=== PATIENT | female | born 1970 | race Two or more races ===

== ENCOUNTER 2020-07-24 14:41 | Outpatient (REF) | payer MEDICAID, SELFPAY | END 2020-07-24 14:42 | disposition home or self-care (01) | LOC: HO.LAB 14:41 | PROVIDERS: PCP Internal Medicine Geriatric Medicine; Visit Provider Internal Medicine | DX: Z20.828 Contact with and (suspected) exposure to other viral communicable diseases (principal) | CPT/HCPCS: 87635 ==

== ENCOUNTER 2021-03-01 07:37 | Outpatient (REF) | payer MEDICAID, SELFPAY ==
--- NOTE | 2021-03-01 | PFT_ITS ---
INDICATION: Dyspnea. SPIROMETRY: The FEV1 to FVC 85% with an FEV1 of 2.48 L, which is 88% predicted, and an FVC of 2.91 L, which is 84% predicted. No significant response to bronchodilators noted. Maximum voluntary ventilation 98% predicted. LUNG VOLUMES: Total lung capacity 84% predicted with an expiratory reserve volume of 28% predicted. DIFFUSION CAPACITY: DLCO 90% predicted. COMPARISONS: None. INTERPRETATION: No obstructive nor restrictive ventilatory defects identified. No significant response to bronchodilators noted. Normal maximum voluntary ventilation. Lung volumes with low normal total lung capacity, but also significantly decreased expiratory reserve volume secondary to an elevated BMI. Diffusion capacity is within normal limits. If asthma is in the differential, methacholine challenge may be helpful in assessing for hyper-reactive airways, otherwise clinical correlation warranted. MD SANDRO Verma/MODL / [id number]
--- NOTE | ~2021-03-01 | XR_ITS ---
EXAMINATION: XR CHEST 2 VIEWS CLINICAL INFORMATION: Dyspnea. COMPARISON: Chest radiographs dated 11/02/2018. TECHNIQUE: Frontal and lateral views of the chest were obtained. FINDINGS: The heart, great vessels, pulmonary vasculature and mediastinum are normal. The lungs show no focal infiltrate, effusion or pneumothorax. There is no acute osseous abnormality. There is multi-level thoracolumbar spondylosis, with an appearance suggesting possible DISH (diffuse idiopathic skeletal hyperostosis). XR/XR chest 2V IMPRESSION: No active cardiopulmonary disease.
== END 2021-03-01 07:38 | disposition home or self-care (01) ==
LOC: HO.RESP 07:37
PROVIDERS: PCP Internal Medicine Geriatric Medicine; Visit Provider Internal Medicine Geriatric Medicine
DX: R06.00 Dyspnea, unspecified (principal)
CPT/HCPCS: 71046; 94060; 94727; 94729

== ENCOUNTER 2021-03-28 14:50 | Outpatient (REF) | payer MEDICAID, SELFPAY ==
--- NOTE | ~2021-03-28 | XR_ITS ---
EXAMINATION: XR LEFT KNEE XR AP BILATERAL KNEES CLINICAL INFORMATION: Left knee pain. COMPARISON: None. TECHNIQUE: Bilateral knees standing. Left knee 2 views. FINDINGS: AP Bilateral Knees: There is mild reduction in the medial compartment joint space both knees. No bony erosive changes. No loose bodies or soft tissue swelling. There is mild sclerosis of bone marrow medial distal right femur with slight cortical outpouching. Question old or remote fracture. Underlying lesion is hard to exclude. Left Knee: There is mild loss of patellofemoral compartment joint space with minimal lateral patellar spurring. No abnormal joint effusion. No loose bodies seen. There is no acute fracture. XR/XR knee LT 2V IMPRESSION: Mild loss of medial and patellofemoral compartment joint space left knee with lateral patellar spurring. Findings are suggestive of degenerative arthritis. No visible acute fracture, dislocation or soft tissue abnormality seen. Mild sclerosis distal femoral bone marrow with medial cortical outpouching, right knee. This could be secondary to old or remote fracture. Underlying primary bone lesion cannot be excluded. Recommend correlation with clinical history of remote trauma. If there is no trauma, further evaluation with a bone scan or MRI is recommended.
--- NOTE | ~2021-03-28 | XR_ITS ---
EXAMINATION: XR LEFT KNEE XR AP BILATERAL KNEES CLINICAL INFORMATION: Left knee pain. COMPARISON: None. TECHNIQUE: Bilateral knees standing. Left knee 2 views. FINDINGS: AP Bilateral Knees: There is mild reduction in the medial compartment joint space both knees. No bony erosive changes. No loose bodies or soft tissue swelling. There is mild sclerosis of bone marrow medial distal right femur with slight cortical outpouching. Question old or remote fracture. Underlying lesion is hard to exclude. Left Knee: There is mild loss of patellofemoral compartment joint space with minimal lateral patellar spurring. No abnormal joint effusion. No loose bodies seen. There is no acute fracture. XR/XR knee standing BI IMPRESSION: Mild loss of medial and patellofemoral compartment joint space left knee with lateral patellar spurring. Findings are suggestive of degenerative arthritis. No visible acute fracture, dislocation or soft tissue abnormality seen. Mild sclerosis distal femoral bone marrow with medial cortical outpouching, right knee. This could be secondary to old or remote fracture. Underlying primary bone lesion cannot be excluded. Recommend correlation with clinical history of remote trauma. If there is no trauma, further evaluation with a bone scan or MRI is recommended.
== END 2021-03-28 14:51 | disposition home or self-care (01) ==
LOC: HO.XRAY 14:50
PROVIDERS: PCP Internal Medicine Geriatric Medicine; Visit Provider Physician Assistant
DX: M17.12 Unilateral primary osteoarthritis, left knee (principal); M25.562 Pain in left knee; M25.561 Pain in right knee
CPT/HCPCS: 73560; 73565; 99202

== ENCOUNTER → 2021-04-18 11:55 | Outpatient (BNVA) | payer MEDICAID, SELFPAY | PROVIDERS: PCP Internal Medicine Geriatric Medicine; Visit Provider Orthopaedic Surgery | DX: M25.532 Pain in left wrist (principal) | CPT/HCPCS: 99202 ==

== ENCOUNTER 2021-11-23 14:12 | Outpatient (REF) | payer MEDICAID, SELFPAY ==
--- NOTE | ~2021-11-23 | MM_ITS ---
EXAMINATION: MM SCREENING DIGITAL BREAST TOMOSYNTHESIS, BILATERAL CLINICAL INFORMATION: Screening. Asymptomatic. The lifetime risk of breast cancer based on the Tyrer-Cuzick Model is 8%. COMPARISON: Mammography: 04/21/2018, 04/17/2017, 12/13/2010 TECHNIQUE: Digital breast tomosynthesis is performed in both the craniocaudal and mediolateral oblique views along with computer-aided detection (CAD). Synthesized 2D images are generated from the tomosynthesis. FINDINGS: There are scattered areas of fibroglandular density (ACR BI-RADS breast composition Category b). There are no significant masses, abnormal calcifications, or other abnormalities. Parenchymal pattern is similar to prior studies. There are no significant changes. MM/MM tomosynthesis screening BI IMPRESSION: No mammographic evidence of malignancy. ASSESSMENT: BI-RADS 1: Negative RECOMMENDATION: Routine annual mammography screening. This patient's information was entered into a reminder system with a target due date for their next mammogram.
== END 2021-11-23 14:13 | disposition home or self-care (01) ==
LOC: HO.MAMMO 14:12
PROVIDERS: PCP Internal Medicine Geriatric Medicine; Visit Provider Internal Medicine Geriatric Medicine
DX: Z12.31 Encounter for screening mammogram for malignant neoplasm of breast (principal)
CPT/HCPCS: 77063; 77067

== ENCOUNTER 2022-12-09 09:14 | Outpatient (REF) | payer MEDICAID, SELFPAY ==
--- NOTE | ~2022-12-09 | US_ITS ---
EXAMINATION: US ABDOMEN COMPLETE CLINICAL INFORMATION: Right upper quadrant pain.. COMPARISON: Ultrasound abdomen 07/19/2011. TECHNIQUE: Real-time imaging of the abdominal viscera. FINDINGS: PANCREAS: Normal. ABDOMINAL AORTA: The proximal, mid, and distal segments are normal in caliber. INFERIOR VENA CAVA: Visualized portions are normal. LIVER: The liver is enlarged measuring 20.0 cm.. The liver is normal in size. The liver contour is normal. Parenchymal echogenicity is diffusely increased. No focal hepatic lesion. There is no intrahepatic biliary duct dilatation seen. GALLBLADDER: There are echogenic gallstones without wall thickening. No sludge, polyps, wall thickening or pericholecystic fluid seen. COMMON BILE DUCT: Normal in caliber measuring 0.7 cm in diameter. RIGHT KIDNEY: Normal. No hydronephrosis. No renal calculi or focal parenchymal lesions. The kidney measures 11.0 cm in maximum dimension. LEFT KIDNEY: Normal. No hydronephrosis. No renal calculi or focal parenchymal lesions. The kidney measures 11.7 cm in maximum dimension. SPLEEN: Normal. The spleen measures 10.0 cm in maximum dimension. FREE FLUID: None. US/US abdomen complete IMPRESSION: 1. Cholelithiasis without wall thickening. 2. Diffuse echogenic liver without focal lesion. 3. Rest of the abdominal ultrasound is unremarkable.
== END 2022-12-09 09:15 | disposition home or self-care (01) ==
LOC: HO.US 09:14
PROVIDERS: Visit Provider Internal Medicine Geriatric Medicine
DX: R10.11 Right upper quadrant pain (principal)
CPT/HCPCS: 76700

== ENCOUNTER → 2022-12-23 11:21 | Outpatient (BNVA) | payer MEDICAID, SELFPAY | PROVIDERS: PCP Internal Medicine Geriatric Medicine; Referring Provider Internal Medicine Geriatric Medicine; Visit Provider Surgery | DX: K80.50 Calculus of bile duct without cholangitis or cholecystitis without obstruction (principal) | CPT/HCPCS: 99202 ==

== ENCOUNTER 2023-01-03 07:05 | Day surgery (SDC) | payer MEDICAID, SELFPAY ==
[2022-12-30 13:36] VITALS: BMI 43.4
--- NOTE | 2023-01-02 10:23 | HO.ANESPROP2 ---
Documented by User: Arin Erickson NP 01/02/23 10:24 HPI - Anesthesia Eval Consult details Narrative: 52yo F for Cholecystectomy Laparoscopic, possible open PMFSH Active Problems Active Problems: All Active Problems (Updated 12/30/22 @ 13:36 by Ansley Mcknight RN) Osteoarthritis of left knee (Acute) Left wrist pain (Acute) Biliary colic (Acute) Past Medical History Medical History (Updated 12/30/22 @ 13:26 by Ansley Mcknight RN) Fibromyalgia High blood pressure HTN (hypertension) On beta kelley at home Surgical History Surgical History (Updated 12/30/22 @ 13:36 by Ansley Mcknight RN) No pertinent past surgical history Social History Social History Alcohol intake: never Patient Tobacco Use Status: Never used Tobacco Are you DNR?: No Advance Directives: No Advance Directives Information Provided: Yes Nutrition Risks: No Nutritional Risk Current occupational status: employed 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 Meds Allergies Allergy/AdvReac Type Severity Reaction Status Date / Time No Known Allergies Allergy Verified 01/03/23 07:15 [No Known Allergies*] Active Medications: Current Medications Cefazolin Sodium/Dextrose (Ancef) 2 gm in 50 mls @ 100 mls/hr IV PREOP ONE Stop: 01/02/23 10:35 Home Medications Medication Instructions Recorded Confirmed Last Taken Type metoprolol succinate 25 mg 12.5 mg PO DAILY 03/28/21 12/30/22 Unknown History tablet,extended release 24 hr fluticasone propionate 220 1 puff inhalation BID 12/23/22 12/30/22 Unknown History mcg/actuation HFA aerosol inhaler (Flovent HFA) montelukast 10 mg tablet 10 mg PO QPM 12/23/22 12/30/22 Unknown History Exam Exam Date and Time: January 02, 2023 1023 Height,Weight and Vital Signs: Height 5 ft 4 in Weight 114.759 kg Assessment and Plan Assessment Anesthesia Assessment: Chart Reviewed Documented by User: Laron Gordon MD 01/03/23 07:48 [facility] Past Medical History Medical History (Updated 12/30/22 @ 13:26 by Ansley Mcknight, RN) Fibromyalgia High blood pressure HTN (hypertension) On beta kelley at home Family History Family history of problems with anesthesia: No Surgical History Surgical History (Updated 12/30/22 @ 13:36 by Ansley Mcknight, RN) No pertinent past surgical history History of Problems with Anesthesia: No Social History Social History Alcohol intake: never Patient Tobacco Use Status: Never used Tobacco Are you DNR?: No Advance Directives: No Advance Directives Information Provided: Yes Nutrition Risks: No Nutritional Risk Current occupational status: employed 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 Meds Allergies Allergy/AdvReac Type Severity Reaction Status Date / Time No Known Allergies Allergy Verified 01/03/23 07:15 [No Known Allergies*] Home Medications Medication Instructions Recorded Confirmed Last Taken Type metoprolol succinate 25 mg 12.5 mg PO DAILY 03/28/21 12/30/22 Unknown History tablet,extended release 24 hr fluticasone propionate 220 1 puff inhalation BID 12/23/22 12/30/22 Unknown History mcg/actuation HFA aerosol inhaler (Flovent HFA) montelukast 10 mg tablet 10 mg PO QPM 12/23/22 12/30/22 Unknown History Exam Airway Mallampati Class: II TM Dist: <=3cm Neck ROM: Limited Heart: rrr Lungs: cta Assessment and Plan Assessment Anesthesia Assessment: Anesthesia Plan Discussed Final Anesthetic Review Family History of Problems with Anesthesia: No History of Problems with Anesthesia: No NPO: Yes ASA Class: III Final Preanesthetic Review: No Changes in Pt Med Stat, Meds/Allgs Chart Reviewed, Consent Obtained/Reviewed and Anes Risks/Benef Reviewed Patient Risk: Intermediate Procedure Risk: Intermediate Anesthetic Plan Anesthetic Plan: GA Disposition: Standard PACU
[2023-01-03] VITALS (12 sets, daily range): BP systolic 140–168; BP diastolic 68–95; PULSE 62–95; RESP 16–20; TEMP 36.1–36.8; O2SAT 98–100
[2023-01-03] MEDS: Lactated Ringers 1,000 ML 100 ML IVCONT (07:37)
--- NOTE | 2023-01-03 08:00 | PC.NURSE ---
IV attempt by author. attempt and insertion by josee ramsey rn
--- NOTE | 2023-01-03 08:34 | MHC.SHP ---
Pre-Procedural Eval Section A Date of Service: 01/03/23 The patient is an INPATIENT: No Changes since office visit: No Cold of Flu in the past 2 weeks, No New Medical Problems, No Changes in Medication and No Patient answered all questions Section B Chief Complaint: Calculus of bile duct without cholangitis or anna Allergies: Allergies Allergy/AdvReac Type Severity Reaction Status Date / Time No Known Allergies Allergy Verified 01/03/23 07:15 [No Known Allergies*] Plan I have reviewed the history and physical and performed a pertinent physical examination on my patient. No changes have occurred unless specified. Time Spent With Patient Time: Total time managing care of this patient today ____ minutes.
--- NOTE | 2023-01-03 09:54 | W.PM.OPN ---
Operative Note Operative Note Date of Service: 01/03/23 Narrative: Preoperative diagnosis: [] biliary colic Postop diagnosis: [] biliary colic Procedure [] laparoscopic cholecystectomy Surgeon: [] Cr Mechanical Shovel Operator: [] luis alfredo Mart Type of Anesthesia: [] general Indication for surgery: [] symptomatic biliary colic Findings: [] very corpulent abdomen. Gallbladder filled with multiple gallstones. Omental adhesions to the gallbladder. Intrahepatic gallbladder. Patient was brought to the operating room, placed on the operating table in a supine position, and after an adequate level of general anesthesia was induced, the patient's abdomen which was quite corpulent was prepped and draped in usual sterile fashion. Using a supraumbilical curvilinear incision, Najera technique was used to into the abdominal cavity which wasinsufflated to 15 mm of CO2. Upper midline and right subcostal ports were placed under direct laparoscopic view, and the patient was placed in reverse Trendelenburg position, and tilted to the left. Gallbladder was grasped using laparoscopic graspers and retracted superiorly and laterally. Omental lesions were swept off the gallbladder where its hilum was approached. Cystic artery and cystic duct were each identified ,circumferentially skeletonized, and each traced directly to the gallbladder and the critical view obtained. Each was clipped proximally x2, distally x1, and transected. Intrahepatic gallbladder was then cauterized from the gallbladder fossa using electro Bovie. Specimen was placed in an Endo-Catch bag, and retrieved through the umbilical port. Abdominal cavity was copiously irrigated, and secured hemostasis. All ports were removed under direct laparoscopic view. Wounds were closed in the following manner; umbilical wound had its fascia reapproximated using interrupted 0 Vicryl sutures. Skin was closed using subcuticular 4-0 Vicryl sutures followed by Steri-Strips and sterile dressings. Wounds were infiltrated 0.5% Marcaine with epinephrine at completion. Sponge, needle, and instrument counts were reported to be correct. Patient tolerated the procedure well and emerged anesthesia stable condition. EBL minimal
== END 2023-01-03 13:11 | disposition home or self-care (01) ==
PROVIDERS: PCP Internal Medicine Geriatric Medicine; Visit Provider Surgery
PROC: 0FT44ZZ Resection of Gallbladder, Percutaneous Endoscopic Approach (ICD-10-PCS; CPT 47562; principal; 2023-01-03 09:10)
DX: K80.10 Calculus of gallbladder with chronic cholecystitis without obstruction (principal); K82.8 Other specified diseases of gallbladder; I10 Essential (primary) hypertension; M79.7 Fibromyalgia; Z79.899 Other long term (current) drug therapy
CPT/HCPCS: 47562; 88304; J0131; J0690; J1100; J1170; J2250; J2370; J2405; J3010

== ENCOUNTER → 2023-01-10 09:54 | Outpatient (BNVA) | payer MEDICAID, SELFPAY | PROVIDERS: PCP Internal Medicine Geriatric Medicine; Visit Provider Surgery ==

== ENCOUNTER 2023-06-04 09:32 | Outpatient (REF) | payer MEDICAID, SELFPAY ==
[2023-06-04 11:56] LABS: Estimated Average Glucose 140 mg/dL; Hemoglobin A1c % 6.5 % (<6.0)
[2023-06-04 12:19] LABS: Anion Gap 11 (12-20); Blood Urea Nitrogen 14 mg/dL (9-16); Calcium 10.2 mg/dL (8.4-10.2); Carbon Dioxide 28 mmol/L (22-29); Chloride 106 mmol/L (96-108); Estimated Glomerular Filt Rate > 60; Glucose Random 159 mg/dL (60-115); Potassium 4.5 mmol/L (3.3-5.1); Sodium 140 mmol/L (135-145)
[2023-06-04 12:25] LABS: TSH reflex Free T4 4.52 uIU/mL (0.32-4.0)
[2023-06-04 12:59] LABS: Free T4 (Free Thyroxine) 0.76 ng/dL (0.71-1.85)
== END 2023-06-04 09:33 | disposition home or self-care (01) ==
LOC: HO.HHCL 09:32
PROVIDERS: Visit Provider Internal Medicine Geriatric Medicine
DX: R63.5 Abnormal weight gain (principal); R73.03 Prediabetes; G56.01 Carpal tunnel syndrome, right upper limb
CPT/HCPCS: 36415; 80048; 83036; 84439; 84443

== ENCOUNTER 2023-09-15 13:59 | Outpatient (REF) | payer MEDICAID, SELFPAY ==
[2023-09-18 21:38] LABS: HPV mRNA E6/E7 rflx Not Detected (Not Detected)
[2023-09-18 23:05] LABS: C. trachomatis RNA TMA NOT DETECTED (NOT DETECTED); N. gonorrhoeae RNA TMA NOT DETECTED (NOT DETECTED)
[2023-09-30 08:39] LABS: Trichomonas (NAAT) NOT DETECTED
== END 2023-09-15 14:00 | disposition home or self-care (01) ==
LOC: HO.HHCLNP 13:59
PROVIDERS: Visit Provider Advanced Practice Midwife
DX: Z12.4 Encounter for screening for malignant neoplasm of cervix (principal); Z11.51 Encounter for screening for human papillomavirus (HPV); Z11.3 Encounter for screening for infections with a predominantly sexual mode of transmission; N95.0 Postmenopausal bleeding
CPT/HCPCS: 36415; 87491; 87591; 87624; 87661; 88142

== ENCOUNTER → 2023-10-22 12:15 | Outpatient (BNV) | payer MEDICAID, SELFPAY | PROVIDERS: PCP Internal Medicine Geriatric Medicine; Visit Provider Radiology Diagnostic Radiology | DX: Z12.31 Encounter for screening mammogram for malignant neoplasm of breast (principal) | CPT/HCPCS: 77063; 77067 ==

== ENCOUNTER 2023-10-22 12:36 | Outpatient (REF) | payer MEDICAID, SELFPAY | END 2023-10-22 12:37 | disposition home or self-care (01) | LOC: HO.MAMMO 12:36 | PROVIDERS: PCP Internal Medicine Geriatric Medicine; Visit Provider Advanced Practice Midwife | DX: Z12.31 Encounter for screening mammogram for malignant neoplasm of breast (principal) | CPT/HCPCS: 77063; 77067 ==

== ENCOUNTER 2024-01-21 09:01 | Outpatient (REF) | payer MEDICAID, SELFPAY ==
[2024-01-21 12:01] LABS: Cholesterol 198 mg/dL (<200); HDL Cholesterol 50 mg/dL (>40); LDL Cholesterol Calculated 123 mg/dL (<100); Triglycerides 127 mg/dL (<150)
[2024-01-21 12:25] LABS: Creatinine Urine 167.61 mg/dL; Microalbum/Creatinine Ratio Ur 16.7 ug/mg cr (<30)
== END 2024-01-21 09:02 | disposition home or self-care (01) ==
LOC: HO.HHCL 09:01
PROVIDERS: Visit Provider Internal Medicine Geriatric Medicine
DX: Z13.220 Encounter for screening for lipoid disorders (principal); E11.9 Type 2 diabetes mellitus without complications
CPT/HCPCS: 36415; 80061; 82043; 82570

== ENCOUNTER 2024-04-09 10:19 | Outpatient (REF) | payer MEDICAID, SELFPAY ==
--- NOTE | ~2024-04-09 | US_ITS ---
EXAMINATION: US EXTREMITY, NONVASCULAR CLINICAL INFORMATION: Posterior left knee pain, question left popliteal cyst. COMPARISON: None available. TECHNIQUE: Targeted ultrasound images were obtained by the taximeter repairer of the area of concern as indicated by the patient in the left popliteal fossa. Radiologist was not in attendance. Images were later provided for interpretation. FINDINGS: No discrete fluid collection or mass identified in the left popliteal fossa. Imaged segment of left popliteal vein appears patent. US/US extremity nonvascular IMPRESSION: No discrete fluid collection or mass identified in the left popliteal fossa.
== END 2024-04-09 10:20 | disposition home or self-care (01) ==
LOC: HO.US 10:19
PROVIDERS: PCP Internal Medicine Geriatric Medicine; Visit Provider Nurse Practitioner Family
DX: M25.562 Pain in left knee (principal)
CPT/HCPCS: 76882

== ENCOUNTER 2024-05-10 08:25 | Outpatient (REF) | payer MEDICAID, SELFPAY | END 2024-05-10 08:26 | disposition home or self-care (01) | LOC: HO.HOSX 08:25 | PROVIDERS: Visit Provider Physician Assistant | DX: Z13.89 Encounter for screening for other disorder (principal) ==

== ENCOUNTER 2024-06-03 09:12 | Outpatient (REF) | payer MEDICAID, SELFPAY ==
--- NOTE | ~2024-06-03 | XR_ITS ---
EXAMINATION: XR KNEE, RIGHT XR KNEE, LEFT CLINICAL INFORMATION: Pain in the left and right knees. COMPARISON: None available. TECHNIQUE: Standing AP view of both knees and lateral and sunrise views of the left knee. FINDINGS: LEFT KNEE: Mild patellofemoral compartment osteoarthritis is characterized by small marginal osteophytes. Medial and lateral compartment joint spaces appear relatively well preserved. No fracture or malalignment. No joint effusion. Soft tissues are unremarkable. RIGHT KNEE: The bones, joints, and soft tissues are normal on the single AP view. XR/XR knee LT 3V IMPRESSION: Mild patellofemoral compartment osteoarthritis in the left knee. Electronically signed by: Ganga Tubbs MD 06/09/2024 01:09 PM EDT RP
--- NOTE | ~2024-06-03 | XR_ITS ---
EXAMINATION: XR KNEE, RIGHT XR KNEE, LEFT CLINICAL INFORMATION: Pain in the left and right knees. COMPARISON: None available. TECHNIQUE: Standing AP view of both knees and lateral and sunrise views of the left knee. FINDINGS: LEFT KNEE: Mild patellofemoral compartment osteoarthritis is characterized by small marginal osteophytes. Medial and lateral compartment joint spaces appear relatively well preserved. No fracture or malalignment. No joint effusion. Soft tissues are unremarkable. RIGHT KNEE: The bones, joints, and soft tissues are normal on the single AP view. XR/XR knee RT 1V IMPRESSION: Mild patellofemoral compartment osteoarthritis in the left knee. Electronically signed by: Ganga Tubbs MD 06/09/2024 01:09 PM EDT RP
== END 2024-06-03 09:13 | disposition home or self-care (01) ==
LOC: HO.HOSX 09:12
PROVIDERS: PCP Internal Medicine Geriatric Medicine; Visit Provider Physician Assistant
DX: M25.561 Pain in right knee (principal); M17.12 Unilateral primary osteoarthritis, left knee
CPT/HCPCS: 73560; 73562; 99212

== ENCOUNTER 2024-06-03 09:51 | Outpatient (AMB) | payer MEDICAID, SELFPAY ==
--- NOTE | 2024-06-03 10:19 | MHC.OFFVIS ---
Vital Signs 06/03/24 10:20 Height 5 ft 4 in Weight 240 lb BMI 41.2 Intake Visit Reasons: New Pt - left knee pain Intake Note: Hugh 53 year old female who presents today for a new patient evaluation of left knee pain. Patient reports her pain has been present for about 3-4 years, no previous tx. Her pain is located at the anterior and posterior aspect of knee. Finds very little relief with taking Tylenol and Motrin. Baby Nurse Required: Yes Baby Nurse Name: ID#[id number] Allergies No Known Allergies [No Known Allergies*] Allergy (Verified 06/03/24 10:21) Medication List - Last Reconciled 06/03/24 by Shanice Moore PA-C acetaminophen-codeine 300-15 mg 1 tab PO Q4H PRN fluticasone propionate 220 mcg/actuation (Flovent HFA) 1 puff inhalation BID metoprolol succinate ER 12.5 mg PO DAILY montelukast 10 mg PO QPM pramipexole 0.25 mg PO DAILY HPI HPI New Pt - left knee pain: Details: 53-year-old female who presents to the office today for an evaluation of left knee pain for about 4 years. She states she has pain at the anterior aspect and posterior aspect of her knee that is aggravated with stair use. She also experiences weakness with getting up after bending her knee. She finds minimal relief with Tylenol and Motrin. She has tried physical therapy a few years ago with no relief. 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 Tenderness along the medial joint line and lateral retropatellar tenderness present. Full ROM with crepitus. Negative Davidson?s. No ligamentous laxity. NVI. ? Results Reviewed Results Reviewed: X-rays of left knee the obtained in the office today show medial joint space narrowing with patellofemoral arthritis. Assessment & Plan Assessment & Plan (1) Osteoarthritis of left knee: Code(s): M17.12 - Unilateral primary osteoarthritis, left knee Category: Medical Plan We discussed options today which include physical therapy, anti-inflammatories and injections. She will hold off on injection today. I did put in an order for physical therapy and sent a prescription of Celebrex to her pharmacy which she will try for the next several weeks. If symptoms persist or worsen, patient will contact the office, otherwise follow-up as needed. for left knee cortisone injection. Orders: Orders XR knee RT 1V Today M25.561 - Pain in right knee PT Evaluation and Treatment Today M17.12 - Unilateral primary osteoarthritis, left knee Medications: New celecoxib (Celebrex) 200 mg PO BID 60 caps 3RF 30 days Patient Instructions: Scribed for Shanice Moore PA-C, by Jd Mosquera director medical economics, on 06/03/2024 at 10:15 AM EST.? I, Shanice Moore PA-C, have personally reviewed and agree with the information entered by the scribe. Coding Level of Care Code Est Pt Level 3 (62053) Complex EM visit Add On G2211 Diagnoses Osteoarthritis of left knee M17.12
[2024-06-03 10:20] VITALS: BMI 41.2
== END 2024-06-03 10:57 | disposition home or self-care (01) ==
PROVIDERS: PCP Internal Medicine Geriatric Medicine; Visit Provider Physician Assistant
DX: M17.12 Unilateral primary osteoarthritis, left knee (principal)
CPT/HCPCS: 99214

== ENCOUNTER 2024-08-11 09:05 | Outpatient (REF) | payer MEDICAID, SELFPAY ==
[2024-08-11 12:10] LABS: Alanine Aminotransferase 25 U/L (0-31); Albumin Level 3.8 g/dL (3.5-5.0); Alkaline Phosphatase 74 U/L (39-117); Anion Gap 12 (12-20); Aspartate Amino Transferase 21 U/L (5-31); Bilirubin Total 0.3 mg/dL (0.0-1.0); Blood Urea Nitrogen 13 mg/dL (9-16); Calcium 9.9 mg/dL (8.4-10.2); Carbon Dioxide 25 mmol/L (22-29); Chloride 107 mmol/L (96-108); Cholesterol 191 mg/dL (<200); Estimated Glomerular Filt Rate > 60; Glucose Random 127 mg/dL (60-115); HDL Cholesterol 45 mg/dL (>40); LDL Cholesterol Calculated 121 mg/dL (<100); Potassium 3.8 mmol/L (3.3-5.1); Sodium 140 mmol/L (135-145); Total Protein 7.1 g/dL (6.5-8.0); Triglycerides 125 mg/dL (<150)
[2024-08-11 12:30] LABS: Creatinine Urine 106.02 mg/dL
== END 2024-08-11 09:06 | disposition home or self-care (01) ==
LOC: HO.HHCL 09:05
PROVIDERS: Visit Provider Internal Medicine Geriatric Medicine
DX: E11.9 Type 2 diabetes mellitus without complications (principal)
CPT/HCPCS: 36415; 80053; 80061; 82043; 82570

== ENCOUNTER 2025-01-18 08:12 | Outpatient (REF) | payer OTHER, SELFPAY ==
--- NOTE | 2025-01-18 08:15 | EMG_ITS ---
Bilateral median and ulnar motor and sensory studies were performed. Bilateral radial sensory studies were performed and bilateral median and lateral antecubital brachial sensory studies were performed. Needle examination was performed. 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 MD KARLA Talbert/MAT / [id number]
--- OUTSIDE RECORDS SUMMARY | 2025-01-18 08:18 | XMS_ITS | Encounter Summary ---
Author Organization [employer] Address [address] [place] [address] [place] [address] Care Team Providers Care Sustainment Logistics Analyst Name Role Phone Name, Roni FERRARA Primary Care Provider [phone] Reason for Visit * Reason Onset Date Comments call back 12/10/2022 Encounter Details Date Type Department Care Team (Late st Contact Info) Description 12/10/2022 Telephone [facility] [address] [place] [address] [phone] Name, MD Roni [address] [place] [phone] call back Social History Tobacco Use Types Packs/Day Years Used Date Smoking Tobacco: Never Smokeless Tobacco: Never Alcohol Use Standard Drinks/Week Comments Never 0 (1 standard drink = 0.6 oz pur e alcohol) Comments Unknown Sex and Gender Information Value Date Recorded Sex Assigned at Female 08/05/2022 10:16 AM EDT Legal Sex Female 10:16 AM EDT Gender Identity Female 08/05/2022 10:16 AM EDT Sexual Orientation Straight 08/05/2022 10 :16 AM EDT documented as of this encounter Miscellaneous Notes * Telephone Encounter - Ahsan Stafford - 12/10/2022 4:23 PM EST Tc from pt returning call. Pt requesting a call back. documented in this encounter Plan of Treatment Upcoming Encounters Date Type Department Care Team (Late Contact Info) Description 02/07/2025 3:45 PM EDT Office Visit [facility] [address] [place] [address] [phone] Name, MD Roni [address] [place] [address] documented as of this encounter Visit Diagnoses Not on filedocumented in this encounter Care Teams Sustainment Logistics Analyst Relationship Specialty Start Date End Date Name, MD Roni [address] [place] [address] PCP - General Family Medicine 04/11/17 documented as of this encounter
--- OUTSIDE RECORDS SUMMARY | 2025-01-18 08:18 | XMS_ITS | Encounter Summary ---
Author Organization [employer] Address [address] [place] [address] [address] [place] [address] Care Team Providers Care Booking Officer Name Role Phone NameRoni MD Primary Care Provider [phone] Encounter Details Date Type Department Care Team (Late st Contact Info) Description 10/08/2022 Orders Only [facility] [address] [place] [address] Blanquita Tolliver LPN Social History Tobacco Use Types Packs/Day Years Used Date Smoking Tobacco: Never Assessed Comments Unknown Sex and Gender Information Value Date Recorded Sex Assigned at Female 08/05/2022 10:16 AM EDT Legal Sex Female 10:16 AM EDT Gender Identity Female 08/05/2022 10:16 AM EDT Sexual Orientation Straight 08/05/2022 10 :16 AM EDT documented as of this encounter Plan of Treatment Upcoming Encounters Date Type Department Care Team (Late st Contact Info) Description 02/07/2025 3:45 PM EDT Office Visit [facility] [address] [place] [phone] NameRoni MD [address] [place] [address] documented as of this encounter Visit Diagnoses Not on filedocumented in this encounter Care Teams Booking Officer Relationship Specialty Start Date End Date Roni Chicas MD [address] [place] [address] PCP - General Family Medicine 04/11/17 documented as of this encounter
--- OUTSIDE RECORDS SUMMARY | 2025-01-18 08:18 | XMS_ITS | Encounter Summary ---
Author Organization [employer] Address [address] [facility] 7 [place] [address] Care Team Providers Care Configuration Management Consultant Name Role Phone Name, Roni FERRARA Primary Care Provider [phone] Reason for Visit * Reason Onset Date Comments Med Refill 08/25/2023 Encounter Details Date Type Department Care Team ([facility] st Contact Info) Description 08/25/2023 Telephone [facility] MEDICINE [address] [place], [place] [phone] Name, MD Roni [address] [place] [address] Med Refill Social History Tobacco Use Types Packs/Day Years Used Date Smoking Tobacco: Never Smokeless Tobacco: Never Alcohol Use Standard Drinks/Week Comments Never 0 (1 standard drink = 0.6 oz pur e alcohol) Depression Answer Date Recorded Patient Health Questionnaire-9 Score 0 03/06/2023 Housing Stability Answer Date Recorded What is your housing situation today? I have maxx katz 07/22/[address] you li ve. Do you have problems with any of the following? None of the above 07/22/2023 Food Insecurity Answer Date Recorded Within the past 12 months, y ou worried that your food would run out before you got money to buy more: Never True 07/22/2023 Within the past 12 months,th e food you bought just didn't last and you didn't have enough money to get more: Never True Transportation Answer Date Recorded In the past 12 months, has l ack of transportation kept you from medical appts, meetings, work or from getting things needed for daily living? No 07/22/2023 Utilities Answer Date Recorded In the past 12 months, has t he electric, gas, oil or water company threatened to shut off services in your home? No 07/22/2023 Depression Answer Date Recorded Patient Health Questionnaire-2 Score 0 03/06/2023 Comments Unknown Sex and Gender Information Value Date Recorded Sex Assigned at Female 08/05/2022 10:16 AM EDT Legal Sex Female 10:16 AM EDT Gender Identity Female 08/05/2022 10:16 AM EDT Sexual Orientation Straight 08/05/2022 10 :16 AM EDT documented as of this encounter Miscellaneous Notes * Telephone Encounter - Blanquita Tolliver LPN - 08/25/2023 10:35 AM EST Medication was sent to [facility] Pharm[facility] on 06/20/23 #30 with 2 refills. * Telephone Encounter - Nathaniel Rodriguez - 08/25/2023 10:26 AM EST Tc from patient requesting a medication refill for pramipexole (Mirapex) 0.25 MG tablet. documented in this encounter Plan of Treatment Upcoming Encounters Date Type Department Care Team (Late st Contact Info) Description 02/07/2025 3:45 PM EDT Office Visit [facility] MEDICINE [address] [place] [phone] Name, MD Roni [address] [place] [phone] documented as of this encounter Visit Diagnoses Not on filedocumented in this encounter Additional Health Concerns Assessment Noted Time PHQ-9 Depression Total Score: 0 03/06/20 10:34 AM EDT documented as of this encounter Care Teams Configuration Management Consultant Relationship Specialty Start Date End Date Name, MD Roni [address] [place] [phone] PCP - General Family Medicine 04/11/17 documented as of this encounter
--- OUTSIDE RECORDS SUMMARY | 2025-01-18 08:18 | XMS_ITS | Encounter Summary ---
Author Organization [employer] Address [address] [place] [address] [place] [address] Care Team Providers Care Digital Sales Executive Name Role Phone Name, Roni FERRARA Primary Care Provider [phone] Reason for Visit * Reason Onset Date Comments Call back 12/10/2022 Encounter Details Date Type Department Care Team ([facility] st Contact Info) Description 12/10/2022 Telephone [facility] MEDICINE [address] [place], [place] [phone] Name, MD Roni [address] [place] [address] Call back Social History Tobacco Use Types Packs/Day [...] encounter Miscellaneous Notes * Telephone Encounter - Tracy Arriola RN - 12/10/2022 3:44 PM EST TC X2 to pt regarding message below. Unable to LVM as call was picked and quickly disconnected. Pt has upcoming appt on Friday. Pt to f/u PRN. * Telephone Encounter - Cooper Saldaña - 12/10/2022 3:19 PM EST Tc from pt returning phone call regarding message let on 12/10/2022 Please contact pt at [phone] documented in this encounter Plan of Treatment Upcoming Encounters Date Type Department Care Team (Late st Contact Info) Description 02/07/2025 3:45 PM EDT Office Visit [facility] MEDICINE [address] [place] [address] Name, MD Roni [address] [place] [address] documented as of this encounter Visit Diagnoses Not on filedocumented in this encounter Care Teams Digital Sales Executive Relationship Specialty Start Date End Date Name, MD Roni [address] [place] [phone] PCP - General Family Medicine 04/11/17 documented as of this encounter
--- OUTSIDE RECORDS SUMMARY | 2025-01-18 08:18 | XMS_ITS | Encounter Summary ---
Author Organization [employer] Address [address] [facility] 7 [place] [address] Care Team Providers Care Drilling Inspector Name Role Phone Name, Roni FERRARA Primary Care Provider [phone] Reason for Visit * Reason Onset Date Comments Nurse Triage 03/31/2024 Encounter Details Date Type Department Care Team ([facility] st Contact Info) Description 03/31/2024 Telephone [facility] MEDICINE [address] [place], [place] [phone] Name, MD Roni [address] [place] [address] Nurse Triage Social History Tobacco Use Types Packs/Day Years [...] t he electric, gas, oil or water [employer] threatened to shut off services in your home? No 07/22/2023 Depression Answer Date Recorded Patient Health Questionnaire-2 Score 0 03/06/2023 Comments No Sex and Gender Information Value Date Recorded Sex Assigned at Female 08/05/2022 10:16 AM EDT Legal Sex Female 10:16 AM EDT Gender Identity Female 08/05/2022 10:16 AM EDT Sexual Orientation Straight 08/05/2022 10 :16 AM EDT documented as of this encounter Miscellaneous Notes * Telephone Encounter - Wanda Canela RN - 03/31/2024 9:35 AM EDT Triage call with [place] [id number] Pt reports left foot pain. Left leg feels, heavier than the right leg. Pt reports pain is mainly on the top of the foot. Pt has hx of plantar fasciitis but, pain has increased recently. Pt denies swelling, redness, warmth. Pt describes the pain as throbbing all the time. Pt is able to ambulate with discomfort and shoes are worn without problem. Pt agrees with disposition and home care reviewed. Apt with GIORGIO Gutierrez 04/05/24 @ 345pm. Insurance is verified as active prior to booking. Protocol Used: Foot Pain (Adult) Protocol-Based Disposition: See in Office or Video Visit within 2 Weeks Video visit not offered Positive Triage Question: * Foot pain is a chronic symptom (recurrent or ongoing AND lasting > 4 weeks) * All higher-acuity triage questions were negative Care Advice Discussed: * Reassurance and Education - Foot Pain * Reassurance and Education - Overuse * Foot Pain - Aggravating Factors * Pain Medicines * Pain Medicines - Extra Notes and Warnings * Reasons To Call Back - Swelling, redness, or fever occur - Severe pain not relieved by pain medicine - Pain lasts over 7 days - You become worse * Telephone Encounter - Thao Waterman - 03/31/2024 8:54 AM EDT Symptom: Leg Pain - Not From Injury Outcome: Schedule an urgent appointment (within 1 hour) or talk to a nurse or provider soon Reason: Severe pain now The caller accepted this outcome Maldivian speaker documented in this encounter Plan of Treatment Upcoming Encounters Date Type Department Care Team (Late st Contact Info) Description 02/07/2025 3:45 PM EDT Office Visit [facility] MEDICINE [address] [place] [address] Name, MD Roni [address] [place] [address] documented as of this encounter Visit Diagnoses Not on filedocumented in this encounter Additional Health Concerns Assessment Noted Time PHQ-9 Depression Total Score: 0 03/06/20 23 10:34 AM EDT documented as of this encounter Care Teams Drilling Inspector Relationship Specialty Start Date End Date Name, MD Roni [address] [place] [id number] PCP - General Family Medicine 04/11/17 documented as of this encounter
--- OUTSIDE RECORDS SUMMARY | 2025-01-18 08:18 | XMS_ITS | Encounter Summary ---
Author Organization [employer] Address [address] [facility] 7 [place] [address] Care Team Providers Care Assisted Living Manager Name Role Phone Name, Roni FERRARA Primary Care Provider [phone] Reason for Visit * Reason Onset Date Comments Results 04/20/2024 Encounter Details Date Type Department Care Team ([facility] st Contact Info) Description 04/20/2024 Telephone [facility] MEDICINE [address] [place], [place] [phone] Name, MD Roni [address] [place] [address] Results Social History Tobacco Use Types Packs/Day Years [...] encounter Miscellaneous Notes * Telephone Encounter - Camilo Ron RN - 04/20/2024 1:57 PM EDT T/C to [phone] through [place] id - [id number] to inform that Ultrasound result is not available ( Not read by [facility] yet ). No answer. LVM to call back on [phone]. * Telephone Encounter - Prudencio Glasgow - 04/20/2024 12:31 PM EDT TC from pt requesting call back regarding Results. Type of results: Ultrasound Date when done: 04/09 Facility: [facility] documented in this encounter Plan of Treatment Upcoming Encounters Date Type Department Care Team (Late st Contact Info) Description 02/07/2025 3:45 PM EDT Office Visit [facility] MEDICINE [address] [place] [address] Name, MD Roni [address] [place] [address] documented as of this encounter Visit Diagnoses Not on filedocumented in this encounter Additional Health Concerns Assessment Noted Time PHQ-9 Depression Total Score: 0 03/06/20 23 10:34 AM EDT documented as of this encounter Care Teams Assisted Living Manager Relationship Specialty Start Date End Date Name, MD Roni [address] [place] [address] PCP - General Family Medicine 04/11/17 documented as of this encounter
--- OUTSIDE RECORDS SUMMARY | 2025-01-18 08:18 | XMS_ITS | Encounter Summary ---
Author Organization [employer] Address [address] [facility] 7 [place] [address] Care Team Providers Care Binder Stripper Machine Name Role Phone Name, Roni FERRARA Primary Care Provider [phone] Reason for Visit * Reason Comments Med Refill Encounter Details Date Type Department Care Team ([facility] st Contact Info) Description 12/29/2023 Refill [facility] MEDICINE [address] [place], [place] [phone] Name, MD Roni [address] [place] [address] Migraine without status migrainosus, not intractable, unspecified migraine type Social History Tobacco Use Types Packs/Day Years [...] Description 02/07/2025 3:45 PM EDT Office Visit [facility] MEDICINE [address] [place] [address] Name, MD Roni [address] [place] [phone] documented as of this encounter Visit Diagnoses Diagnosis Migraine without status migrainosus, not intractable, unspecified migraine type documented in this encounter Additional Health Concerns Assessment Noted Time PHQ-9 Depression Total Score: 0 03/06/20 23 10:34 AM EDT documented as of this encounter Care Teams Binder Stripper Machine Relationship Specialty Start Date End Date Name, MD Roni [address] [place] [address] PCP - General Family Medicine 04/11/17 documented as of this encounter
--- OUTSIDE RECORDS SUMMARY | 2025-01-18 08:18 | XMS_ITS | Clinical Summary ---
Author Organization [facility] Address [address] [place] [address] [address] [place] [address] Care Team Providers Care Labor Relations Analyst Name Role Phone Name, Roni FERRARA Primary Care Provider [phone] Allergies No known active allergies Medications Flovent HFA 220 MCG/ACT inhalerIndicatio ns:Migraine without status migrainosus, not intractable, unspecified migraine type INHALE 1 PUFF BY MOUTH TWICE DAILY RINSE MOUTH AFTER USING. 12 g 5 10/08/19 23 Active omeprazole (PriLOSEC) [address] capsuleIndicatio ns:Migraine without status migrainosus, not intractable, unspecified migraine type TAKE 1 CAPSULE BY MOUTH EVERY DAY 90 capsule 1 10/08/19 23 Active fluticasone (Flonase) 50 MCG/ACT nasal spray USE 2 SPRAYS IN EACH NOSTRIL EVERY DAY 09/11/20 22 Active albuterol 108 (90 Base) MCG/ACT inhaler Inhale 2 puffs Every 4-6 hours as needed. 02/07/20 21 Active DULoxetine (Cymbalta) [address] capsule take 1 capsule by oral route every day for 1 week, then increase to 2 capsules daily 04/26/20 22 Active valACYclovir (Valtrex) 1 g tablet Take 2 tablets by mouth twice daily for 1 day. 02/07/20 21 Active Mometasone Furoate (Asmanex HFA) 200 MCG/ACT aerosol INHALE 1 PUFF BY MOUTH TWICE DAILY RINSE MOUTH AFTER USING 13 g 5 10/17/19 24 Active montelukast (Singulair) 10 MG tabletIndication s:Asthma, unspecified asthma severity, unspecified whether complicated, unspecified whether persistent TAKE 1 TABLET BY MOUTH EVERY EVENING 90 tablet 2 11/17/19 24 Active TRUEplus Lancets 33G misc 1 each Once per day. TEST BLOOD SUGAR ONCE DAY 100 each 3 08/31/20 24 Active SUMAtriptan (Imitrex) 50 MG tabletIndication s:Migraine without status migrainosus, not intractable, unspecified migraine type TAKE 1 TABLET ONCE WITH FLUIDS EARLY POSSIBLE AFTER THE ONSET OF A MIGRAINE ATTACK, MAY REPEAT AFTER 2 HOURS IF HEADACHE RETURNS. DO NOT EXCEED 4 TABS IN A DAY. 10 tablet 2 08/31/20 24 Active FREESTYLE LITE test strip TEST BLOOD SUGAR ONCE A DAY 100 each 3 08/31/20 24 025 Active metoprolol tartrate (Lopressor) 100 MG tabletIndication s:Migraine without status migrainosus, not intractable, unspecified migraine type TAKE 1 TABLET BY MOUTH TWICE DAILY WITH MEALS 180 tablet 1 09/07/20 24 Active celecoxib (CeleBREX) 200 MG capsule TAKE 1 CAPSULE BY MOUTH EVERY DAY 30 capsule 1 11/03/19 25 Active pramipexole (Mirapex) 0.25 MG tabletIndication s:Restless legs TAKE 1 TABLET BY MOUTH EVERY DAY 30 tablet 2 12/03/19 25 Active metFORMIN (Glucophage) 850 MG tabletIndication s:Type 2 diabetes mellitus without complication, without long-term current use of insulin (CMS/HCC) Take 1 tablet (850 mg) by mouth with breakfast. 30 tablet 2 12/21/19 25 026 Active Blood Pressure kitIndications:E ssential hypertension 1 Units Once per day. 1 kit 12/21/19 25 Active dulaglutide (Trulicity) 1.5 MG/0.5ML solution pen-injectorIndi cations:New onset type 2 diabetes mellitus (CMS/HCC) Inject 1.5 mg under the skin 1 (one) time per week. 4 each 11 06/18/20 24 025 Discontinued(Me d list cleanup (will not trigger notification to Pharmacy)) Active Problems Problem Noted Date Diagnosed Date Posterior left knee pain 04/13/2024 Assessment & Plan (04/13/2024 5:32 PM EDT): Ultrasound ordered for possible popliteal cyst, exam not consistent with DVT. Plantar fasciitis, bilateral 04/05/2024 Assessment & Plan (04/13/2024 5:31 PM EDT): Will refer to ortho due to impact on knees. Encouraged sneakers and supportive footwear in interim New onset type 2 diabetes mellitus 06/05/2023 Hx of cholecystectomy 03/06/2023 Vertigo 10/09/2022 Pain of plantar aspect of heel 10/09/2022 Morbid obesity 09/02/2018 Knee pain 06/03/2018 Herpes labialis 10/08/2017 Essential hypertension 08/01/2017 Migraine 08/01/2017 Fibromyalgia 05/07/2017 Heartburn 05/07/2017 Blind left eye 04/16/2017 Joint pain 04/16/2017 Restless legs 04/16/2017 Resolved Problems Problem Noted Date Diagnosed Date Resolved Date Prediabetes 10/09/2022 08/18/2023 Leukocytosis 08/01/2017 03/06/2023 Raised TSH level 08/01/2017 03/06/2023 Encounters Date Type Department Care Team Description 01/10/2025 [facility] [address] [place] [address] NameRoni MD 12/30/2024 [facility] Information Management [address] [place] [address] NameRoni MD 12/20/2024 2:30 PM EDT Office Visit [facility] [address] [place] [address] Cristin Grimm NP Essential hypertension (Primary Dx); New onset type 2 diabetes mellitus (CMS/[facility]); Type 2 diabetes mellitus without complication, without long-term current use of insulin (CMS/HCC) 12/20/2024 Travel 12/15/2024 Telephone [facility] [address] [place] [address] Nishi Meier MA chartprep 12/13/2024 Telephone [facility] [address] [place] [address] Nishi Meier MA rescheduled appointment 12/06/2024 10:30 AM EST Office Visit [facility] [address] [place], [place] [id number] Tarka, Shirley, OD Type 2 diabetes mellitus without ophthalmic manifestations (CMS/HCC) (Primary Dx); Presbyopia; Blindness of left eye with normal vision in contralateral eye 12/06/2024 Telephone [facility] [address] [place] [address] NameRoni MD Appointment Request 12/06/2024 Travel 12/02/2024 Refill [facility] [address] [place], [place] [phone] NameRoni MD Restless legs 11/03/2024 Refill [facility] [address], [place] [phone] NameRoni MD from Last 3 Months Immunizations Name Administration Dates Next Due Tdap 04/16/2017 Social History Tobacco Use Types Packs/Day Years Used Date Smoking Tobacco: Never Smokeless Tobacco: Never Tobacco Cessation:Counseling Given: Not Answered Alcohol Use Standard Drinks/Week Comments Never 0 (1 standard drink = 0.6 oz pur e alcohol) Depression Answer Date Recorded Patient Health Questionnaire-9 Score 18 12/20/2024 Patient Health Questionnaire-9 Score 18 12/20/2024 Last PHQ-9: Questionnaire Data Not on file 0 12/20/2024 Housing Stability Answer Date Recorded What is your housing situation today? I have maxx sterling 12/20/[address] you li ve. Do you have problems with any of the following? None of the above 12/20/2024 Food Insecurity Answer Date Recorded Within the past 12 months, y ou worried that your food would run out before you got money to buy more: Never True 12/20/2024 Within the past 12 months,th e food you bought just didn't last and you didn't have enough money to get more: Never True Transportation Answer Date Recorded In the past 12 months, has l ack of transportation kept you from medical appts, meetings, work or from getting things needed for daily living? No 12/20/2024 Utilities Answer Date Recorded In the past 12 months, has t he electric, gas, oil or water company threatened to shut off services in your home? No 12/20/2024 Depression Answer Date Recorded Patient Health Questionnaire-2 Score 4 12/20/2024 Internet Access Answer Date Recorded Internet Access Q1 Yes 12/20/2024 Internet Access Q2 Not on file 12/20/2024 Comments No Sex and Gender Information Value Date Recorded Sex Assigned at Female 08/05/2022 10:16 AM EDT Legal Sex Female 10:16 AM EDT Gender Identity Female 08/05/2022 10:16 AM EDT Sexual Orientation Straight 08/05/2022 10 :16 AM EDT Last Filed Vital Signs Vital Sign Reading Time Taken Comments Blood Pressure 146/87 12/20/2024 2:50 PM EDT Pulse 73 12/20/2024 2:50 PM EDT Temperature 36.6 ??C (97.8 ??F) 12/20/2024 2:50 PM ED T Respiratory Rate 18 12/20/2024 2:50 PM EDT Oxygen Saturation 96% 12/20/2024 2:50 PM EDT Inhaled Oxygen Concentration - - Weight 115 kg (253 lb 12.8 oz) 12/20/2024 2:50 P M EDT Height 162.6 cm (5' 4 ) 12/20/2024 2:50 PM EDT Body Mass Index 43.56 12/20/2024 2:50 PM EDT Plan of Treatment Upcoming Encounters Date Type Department Care Team (Late st Contact Info) Description 02/07/2025 3:45 PM EDT Office Visit [facility] [address] [place] [address] Name, MD Roni [address] [place] [address] Health Maintenance Due Date Last Done Comments CT Colonography 1970 Colonoscopy 1970 Colorectal Cancer Screening 1970 FIT DNA/Cologuard 1970 FIT 1970 FOBT 1970 HIV Screening 1970 Sigmoidoscopy 1970 Alcohol/Substance Use Screening 1982 Hepatitis C Screening 1988 Hepatitis B Vaccines (1 of 3 - 19+ 3-dose series) 1989 Pneumococcal Vaccine: 50+ Years (1 of 2 - PCV) 1989 Zoster Vaccines (1 of 2) 2020 COVID-19 Vaccine ( - season) 2024 02/09/2021, 01/12/2021 Influenza Vaccine (#1) 2024 Diabetes: Foot Exam 12/21/2024 12/22/2023, 12/22/2023, 12/22/2023, Additional history exists Depression Monitoring 06/22/2025 12/20/2024, 025 Diabetes: Hemoglobin A1C 06/22/2025 025, 06/18/2024, 12/22/2023, Additional history exists Diabetes: Urine Protein Screening 08/11/2025 08/11/2024, 01/21/2024 Lipid Panel 08/11/2025 08/11/2024, 01/04, 03/01/2021 Mammogram 10/22/2025 10/22/2023, 11/06, 09/06/2021, Additional history exists Depression Screening 12/20/2025 12/20/2024, 12/21/19 25 SDOH Screening 12/20/2025 12/20/2024 Tobacco Screening 12/20/2025 12/20/2024 Eye Exam 12/06/2026 12/06/2024, 03/0 12/2024, 12/06/2024, Additional history exists DTaP/Tdap/Td Vaccines (2 - Td or Tdap) 04/16/2027 04/16/2017 Cervical Cancer Screening 09/15/2028 HPV/Cotest 09/15/2028 09/15/2023, 09/12/2020 Pap Smear 09/15/2028 09/15/2023, 09/05, 09/12/2020 RSV Patients and Patients Aged 60 years or older (1 - 1-dose 75+ series) 2045 HIB Vaccines Aged Out No longer eligi ble based on patient's age to complete this topic HPV Vaccines Aged Out No longer eligi ble based on patient's age to complete this topic Hepatitis A Vaccines Aged Out No long er eligible based on patient's age to complete this topic IPV Vaccines Aged Out No longer eligi ble based on patient's age to complete this topic Meningococcal Vaccine Aged Out No anay ed eligible based on patient's age to complete this topic RSV under 20 months Aged Out No longe r eligible based on patient's age to complete this topic Rotavirus Vaccines Aged Out No longer eligible based on patient's age to complete this topic Procedures Procedure Name Priority Date/Time Associated Diagnosis Comments POCT GLYCATED HEMOGLOBIN, TOTAL Routine 12/20/2024 2:58 PM EDT New onset type 2 diabetes mellitus (CMS/HCC) POCT GLUCOSE Routine 12/20/2024 2:52 PM EDT New onset type 2 diabetes mellitus (CMS/HCC) ALBUMIN, RANDOM URINE W/CREATININE Routine 08/11/2024 9:10 AM EST LIPID PANEL, STANDARD Routine 08/11/2024 9:10 AM EST New onset type 2 diabetes mellitus (CMS/HCC) BI MAMMOGRAM SCREENING TOMOSYNTHESIS BILATERAL Routine 10/22/2023 12:54 PM EST Breast cancer screening by mammogram HPV MRNA E6/E7 REFLEX TO HPV 16, 18/45 Routine 09/15/2023 11:11 AM EST IMAGE-GUIDED PAP W/AGE BASED SCR,W/CT/NG/TRICH Routine 09/15/2023 11:11 AM EST Cervical cancer screening Postmenopausal bleeding Encntr screen for infections w sexl mode of transmiss from Last 3 Months or Most Recently Relevant to Health Maintenance Results * (ABNORMAL) POCT HGB A1C (12/20/2024 2:58 PM EDT) Hemoglobin A1C 6.7(A) 4.0 - 6.0 % QC Media Lot # [id number] Lot# Expiration Date [id number] Blood 12/20/2024 2:58 PM EDT us Cristin Grimm NP POINT OF CARE TEST ENTER/EDIT O RDERABLES Final Result * POCT Glucose (12/20/2024 2:52 PM EDT) Glucose Blood, POC 104 60 - 200 mg/dL QC Media Lot # [id number] Lot# Expiration Date [id number] Blood Capillary blood specimen / Unknown 12/20/2024 2:52 PM EDT Cristintata Abreulev GIORGIO POINT OF CARE TEST ENTER/EDIT O RDERABLES Final Result * Albumin, Random Urine W/Creatinine (08/11/2024 9:10 AM EST) Creatinine, Urine 106.02 mg/dL [facility] Microalbumin Urine 16.0 mg/L [facility] Microalbum Creatinine Ratio Ur 15.0 <30 ug/mg cr [facility] Comment:Albumin/Creatinine R atio Reference Ranges: Normal: < 30 ug/mg creatinine Microalbuminuria: 30 - 300 ug/mg creatinineClinical Albuminuria: > 300 ug/mg creatinine 08/11/2024 9:10 AM EST 08/11/2024 11:12 AM EST Roni Chicas MD LAB URINE ORDERABLES Final Resul t [facility] [address] [place] [phone] * (ABNORMAL) Lipid Panel, Standard (08/11/2024 9:10 AM EST) Triglycerides 125 <150 mg/dL [facility] Comment:Desirable Triglyceri de: less than 150 mg/dLBorderline High Triglyceride 150-199 mg/dLHigh Triglyceride: 200-499 mg/dLVery High Triglyceride: greater than or equal to 5OO mg/dL Cholesterol 191 <200 mg/dL [facility] Comment:Desirable Cholestero l: less than 200 mg/dLBorderline High Cholesterol: 200-239 mg/dLHigh Cholesterol: greater than 239 mg/dL LDL Cholesterol Calculated 121(H) <100 mg/dL [facility] Comment:Desirable LDL: less than 100 mg/dLNear Optimal/Above Optimal LDL: 110- 129 mg/dLBorderline High LDL: 130-159 mg/dLHigh LDL: 160-189 mg/dLVery High LDL: greater than or equal to 190 mg/dL HDL Cholesterol 45 >40 mg/dL [facility] Comment:Desirable HDL: great er than 40 mg/dL Note: This HDL assay may give artificially low results in patients with liver disease. Blood Venous blood specimen / Unknown 08/11/2024 9:10 AM EST 08/11/2024 11:25 AM EST us Roni Name LAB BLOOD ORDERABLES Final Resul t [facility] [address] [place] [address] [phone] * BI Mammogram Screening Tomosynthesis Bilateral (10/22/2023 12:54 PM EST) Anatomical Region Laterality Modality Breast Bilateral Mammography 10/22/2023 12:5 4 PM EST Narrative 11/08/2023 6:58 AM EST ? [facility] ? [address] ?[place] [address] ? Mammography Report ? Signed ? Patient: Gigi Devine,Sydnie ?MR#: [id number] ?? [id number] ? : 1970 ?Acct:[id number] ? Age/Sex: 52 / F ?ADM Date: 10/22/ ? Loc: HO.MAMMO ? Attending Dr: Herlinda Lind CNM ? Ordering Physician: HERLINDA LIND CNM ?Results: 1 ?? Negative ? Date of Service: 10/22/ ?Follow Up: 1 Year From Orig ?? inal Mammogram ? Procedure(s): MM tomosynthesis screening BI ?? Accession Number(s): [id number] ? cc: Aviva,Roni FERRARA; HERLINDA LIND CNM ? EXAMINATION: ?? MM SCREENING DIGITAL BREAST TOMOSYNTHESIS, BILATERAL ? CLINICAL INFORMATION: ? Screening. Asymptomatic. ? COMPARISON: ?? Mammography: This study is compared with prior exams dating back to ?? 2017. ? TECHNIQUE: ?? Digital breast tomosynthesis is performed in both the craniocaudal and ?? mediolateral oblique views along with computer-aided detection (CAD). ?? Synthesized 2D images are generated from the tomosynthesis. ? FINDINGS: ?? There are scattered areas of fibroglandular density (ACR BI-RADS breast ?? composition Category b). ? There are no significant masses, abnormal calcifications, or other ?? abnormalities. ? MM/MM tomosynthesis screening BI ?? IMPRESSION: ?? No mammographic evidence of malignancy. ? ASSESSMENT: ? BI-RADS BI-RADS 1 - Negative ? RECOMMENDATION: ?? Routine annual mammography screening. ? 1 year F/U ? This examination should not preclude the clinical evaluation of a ?? suspicious palpable abnormality. ? This patient's information was entered into a reminder system with a ?? target due date for their next mammogram. ? Dictated By: ?Laura Casiano MD ? Signed By: ?<Electronically signed by Laura Casiano MD in OV> ? 11/08/23 0654 ? DD/ 1254 ? TD/TT: ? Clin Tech: ? Procedure Note Rosanna, Image - 11/08/2023 [facility] [address] [place] [address] [place] [address] Mammography Report Signed Patient: Nona Clancy [facility]#: M [id number] : 1970Acct:[id number] Age/Sex: 52 / FADM Date: 10/22/23 Loc: HO.MAMMO Attending Dr: Herlinda Lind CNM Ordering Physician: HERLINDA LINDesults: 1 Negative Date of Service: 10/22/23Follow Up: 1 Year From Orig ina Mammogram Procedure(s): MM tomosynthesis screening BI Accession Number(s): [id number] cc: Name,Roni FERRARA; HERLINDA LIND CNM EXAMINATION: MM SCREENING DIGITAL BREAST TOMOSYNTHESIS, BILATERAL CLINICAL INFORMATION: Screening. Asymptomatic. COMPARISON: Mammography: This study is compared with prior exams dating back to 2017. TECHNIQUE: Digital breast tomosynthesis is performed in both the craniocaudal and mediolateral oblique views along with computer-aided detection (CAD). Synthesized 2D images are generated from the tomosynthesis. FINDINGS: There are scattered areas of fibroglandular density (ACR BI-RADS breast composition Category b). There are no significant masses, abnormal calcifications, or other abnormalities. MM/MM tomosynthesis screening BI IMPRESSION: No mammographic evidence of malignancy. ASSESSMENT: BI-RADS BI-RADS 1 - Negative RECOMMENDATION: Routine annual mammography screening. 1 year F/U This examination should not preclude the clinical evaluation of a suspicious palpable abnormality. This patient's information was entered into a reminder system with a target due date for their next mammogram. Dictated By: Laura Casiano MD Signed By: <Electronically signed by Laura Casiano MD in OV> 11/08/23 0654 DD/ 1254 TD/TT: Clin Tech: Herlinda Lind CNM IMG BI PROCEDURES Final R esult * Image-Guided Pap with Age-Based Screening??with CT/NG,??Trichomonas (09/15/2023 11:11 AM EST) Trichomonas (NAAT) NOT DETECTED [facility] Comment:TRICHOMONAS VAGINALI S, QL TMA, PAP VIAL: NOT DETECTEDThe analytical performance characteristics of thisassay have been determined by [employer]. Themodifications have not been cleared or approved bythe FDA. This assay has been validated pursuant to theIA regulations and is used for clinical purposes.For additional information, please refer tohttp://education.Icon[employer]/faq/Trichomonastma(This link is being provided for information/educational purposes only.)THIS TEST PERFORMED AT:[employer] [place] [phone] DIRECTOR: HUMAIRA HODGE MD CTNG Ref Lab NOT DETECTED NOT DETECTED [facility] NG Ref Lab NOT DETECTED NOT DETECTED [facility] Pap Vial 09/15/2023 11:1 1 AM EST 09/16/2023 11:59 AM EST Herlinda Lind [facility] CYTOLOGY ORDERABLES E dited Result - Final [facility] [address] [place] [phone] * HPV mRNA E6/E7 w/Reflex to HPV Genotypes 16, 18/45 (09/15/2023 11:11 AM EST) HPV nRNA E6/E7 Not Detected Not Detected [facility] Comment:Methodology: Transcr iption-Mediated AmplificationThis assay detects E6/E7 viral messenger RNA (mRNA) from 14high-risk HPV types (16,18,31,33,35,39,45,51,52,56,58,59,66,68).Cervical sources are required for HPV testing.If a vaginal source from a patient who has had atotal hysterectomy with removal of cervix wassubmitted, please contact the testing laboratoryfor alternative testing options.For additional information, please refer tohttp://education.Iconicfuture/faq/OOR925i1(This link if provided for information/educational purposes only.)THIS TEST WAS PERFORMED AT:[employer] [place] [phone] HODGE MD HPV mRNA E6/E7 TNP [facility] HPV 16 RNA TNP [facility] HPV 18/45 RNA [facility] 09/15/2023 11:1 1 AM EST 09/16/2023 8:30 AM EST Herlinda Pazleahdaneorion CN LAB CYTOLOGY ORDERABLES F inal Result [facility] [address] [place] [address] [phone] from Last 3 Months or Most Recently Relevant to Health Maintenance Insurance [facility] [place] [address] Care Teams Labor Relations Analyst Relationship Specialty Start Date End Date Name, MD Roni [address] [place] [address] PCP - General Family Medicine 04/11/17
== END 2025-01-18 08:13 | disposition home or self-care (01) ==
LOC: HO.NEURO 08:12
PROVIDERS: PCP Internal Medicine Geriatric Medicine; Visit Provider Internal Medicine Geriatric Medicine
DX: G56.13 Other lesions of median nerve, bilateral upper limbs (principal)
CPT/HCPCS: 95860; 95886; 95913

== ENCOUNTER 2025-04-29 12:42 | Outpatient (AMB) | payer OTHER, SELFPAY ==
--- OUTSIDE RECORDS SUMMARY | 2025-04-29 12:44 | XMS_ITS | Clinical Summary ---
Author Organization [employer] Address [address] [place] [address] 7 [place] [address] Care Team Providers Care Engraver Name Role Phone Name, Roni FERRARA Primary Care Provider [phone] Allergies No known active allergies Medications Flovent [...] DAY 100 each 3 08/31/20 24 Active FREESTYLE LITE test strip TEST BLOOD SUGAR ONCE A DAY 100 each 3 08/31/20 24 025 Active Blood Pressure kitIndications:E ssential hypertension 1 Units Once per day. 1 kit 12/21/19 25 Active SUMAtriptan (Imitrex) 50 MG tabletIndication s:Migraine without status migrainosus, not intractable, unspecified migraine type TAKE 1 TABLET BY MOUTH AT ONSET OF MIGRAINE. MAY REPEAT ONCE AFTER 2 HOURS IF NEEDED. NO MORE THAN 4 TABLETS PER 24 HOURS 10 tablet 2 02/08/20 25 Active celecoxib (CeleBREX) 200 MG capsule TAKE 1 CAPSULE BY MOUTH EVERY DAY 30 capsule 1 02/08/20 25 Active metFORMIN (Glucophage) 500 MG tabletIndication s:Type 2 Diabetes Mellitus Take 0.5 tablets (250 mg) by mouth with breakfast and with evening meal. 30 tablet 3 02/08/20 25 026 Active pramipexole (Mirapex) 0.25 MG tabletIndication s:Restless legs TAKE 1 TABLET BY MOUTH EVERY DAY 30 tablet 2 03/07/20 25 Active metoprolol tartrate (Lopressor) 100 MG tabletIndication s:Migraine without status migrainosus, not intractable, unspecified migraine type TAKE 1 TABLET BY MOUTH TWICE DAILY WITH MEALS 180 tablet 1 04/06/20 25 Active metoprolol tartrate (Lopressor) 100 MG tabletIndication s:Migraine without status migrainosus, not intractable, unspecified migraine type TAKE 1 TABLET BY MOUTH TWICE DAILY WITH MEALS 180 tablet 1 09/07/20 24 025 Discontinued Active Problems Problem Noted Date Diagnosed Date [...] 06/03/2018 Herpes labialis 10/08/2017 Essential hypertension 08/01/2017 Assessment & Plan (03/17/2025 10:31 AM EDT): -repeat BP w/n acceptable range -lifestyle and dietary changes are encouraged along with med compliance -BP kit ordered for home monitoring Migraine 08/01/2017 Fibromyalgia 05/07/2017 Heartburn 05/07/2017 Blind left eye 04/16/2017 Joint pain 04/16/2017 Restless legs 04/16/2017 Resolved Problems Problem Noted Date Diagnosed Date Resolved Date Prediabetes 10/09/2022 08/18/2023 Leukocytosis 08/01/2017 03/06/2023 Raised TSH level 08/01/2017 03/06/2023 Encounters Date Type Department Care Team Description 04/06/2025 Refill [facility] [address] [place] [address] Roni Chicas MD Migraine without status migrainosus, not intractable, unspecified migraine type 03/14/2025 Telephone [facility] [address] [place] [address] Roni Chicas MD Prior Authorization 03/06/2025 Refill [facility] [address] [place], [place] [phone] Roni Chicas MD Restless legs 02/07/2025 3:45 PM EDT Office Visit [facility] [address] [place] [address] Roni Chicas MD Type 2 diabetes mellitus treated without insulin ([facility]) (Primary Dx) 02/07/2025 Travel 02/05/2025 Refill [facility] [address] [place] [address] Roni Chicas MD 02/05/2025 Refill [facility] [address] [place], [place] [phone] Nona Iverson MD Migraine without status migrainosus, not intractable, unspecified migraine type 02/04/2025 Telephone [facility] [address] [place] [address] Kemal Viera MA chart prep from Last 3 Months Immunizations Immunization Administration Dates Next Due Tdap 04/16/2017 Social [...] housing situation today? I have maxx katz 12/20/[address] you li [...] Sign Reading Time Taken Comments Blood Pressure 155/90 02/07/2025 4:01 PM EDT Pulse 78 02/07/2025 4:01 PM EDT Temperature 37.1 C (98.7 F) 02/07/2025 4:01 PM EDT Respiratory Rate 16 02/07/2025 4:01 PM EDT Oxygen Saturation 98% 02/07/2025 4:01 PM EDT Inhaled Oxygen Concentration - - Weight 115 kg (254 lb) 02/07/2025 4:01 PM EDT Height 162.6 cm (5' 4 ) 02/07/2025 4:01 PM EDT Body Mass Index 43.6 02/07/2025 4:01 PM EDT Plan of Treatment Upcoming Encounters Date Type Department Care Team (Late st Contact Info) Description 05/18/2025 3:30 PM EDT Office Visit [facility] [address] [place], [place] [phone] Name, MD Roni [address] [place] [address] Health Maintenance Due Date Last Done Comments CT Colonography 1970 Colonoscopy 1970 Colorectal Cancer Screening 1970 FIT DNA/Cologuard 1970 FIT 1970 FOBT 1970 HIV Screening 1970 Sigmoidoscopy 1970 Hepatitis C Screening 1988 Hepatitis B Vaccines (1 of 3 - 19+ 3-dose series) 1989 Pneumococcal Vaccine: 50+ Years (1 of 2 - PCV) 1989 Zoster Vaccines (1 of 2) 2020 COVID-19 Vaccine (3 - 2023- season) 2024 02/09/2021, 01/12/2021 Influenza Vaccine (#1) 2025 Depression Monitoring 06/22/2025 12/20/2024, 025 Diabetes: Hemoglobin A1C 06/22/2025 025, 06/18/2024, 12/22/2023, Additional history exists Diabetes: Urine Protein Screening 08/11/2025 08/11/2024, 01/21/2024 Lipid Panel 08/11/2025 08/11/2024, 01/04, 03/01/2021 Mammogram 10/22/2025 10/22/2023, 11/06, 09/06/2021, Additional history exists Diabetes: Foot Exam 12/20/2025 12/20/2024, 12/20/2024, 12/20/2024, Additional history exists SDOH Screening 12/20/2025 12/20/2024 Alcohol/Substance Use Screening 02/07/2026 02/07/2025 Disability Screening 02/07/2026 02/07/2025 Tobacco Screening 02/07/2026 02/07/2025 Eye Exam 12/06/2026 12/06/2024, 12/2024, 12/06/2024, Additional history exists DTaP/Tdap/Td Vaccines [...] patient's age to complete this topic Meningococcal B Vaccine Aged Out No l onger eligible based on patient's age to complete [...] Name Priority Date/Time Associated Diagnosis Comments POCT GLUCOSE Routine 02/07/2025 4:03 PM EDT Type 2 diabetes mellitus treated without insulin ([facility]) POCT GLYCATED HEMOGLOBIN, TOTAL Routine 12/20/2024 2:58 PM EDT Type 2 diabetes mellitus without complication, without long-term current use of insulin (CMS/HCC) ALBUMIN, RANDOM URINE W/CREATININE Routine 08/11/2024 [...] Recently Relevant to Health Maintenance Results * POCT Glucose (02/07/2025 4:03 PM EDT) Glucose Blood, POC 140 60 - 200 mg/dL QC Media Lot # [id number] Lot# Expiration Date 100,725 Blood Capillary blood specimen / Unknown 02/07/2025 4:03 PM EDT us Roni Chicas MD POINT OF CARE TEST ENTER/EDIT OR DERABLES Final Result * (ABNORMAL) POCT HGB A1C (12/20/2024 2:58 PM EDT) Hemoglobin A1C 6.7(A) 4.0 - 6.0 % QC Media Lot # [id number] Lot# Expiration Date [id number] Blood 12/20/2024 2:58 PM EDT us Cristin Grimm NP POINT OF CARE TEST ENTER/EDIT O RDERABLES Final Result * Albumin, Random Urine W/Creatinine (08/11/2024 9:10 AM EST) Creatinine, Urine 106.02 mg/dL [facility] Microalbumin Urine 16.0 mg/L [facility] Microalbum Creatinine Ratio Ur 15.0 <30 ug/mg cr [facility] Comment:Albumin/Creatinine R atio Reference Ranges: Normal: < 30 ug/mg creatinine Microalbuminuria: 30 - 300 ug/mg creatinineClinical Albuminuria: > 300 ug/mg creatinine 08/11/2024 9:10 AM EST 08/11/2024 11:12 AM EST us Roni Name MD LAB URINE ORDERABLES Final Resul t [facility] [address] [place] [address] [phone] * (ABNORMAL) Lipid Panel, Standard (08/11/2024 9:10 AM EST) Triglycerides 125 <150 mg/dL [facility] Comment:Desirable Triglyceri de: less than 150 mg/dLBorderline High Triglyceride 150-199 mg/dLHigh Triglyceride: 200-499 mg/dLVery High Triglyceride: greater than or equal to 5OO mg/dL Cholesterol 191 <200 mg/dL [facility] Comment:Desirable Cholestero l: less than 200 mg/dLBorderline High Cholesterol: 200-239 mg/dLHigh Cholesterol: greater than 239 mg/dL LDL Cholesterol Calculated 121(H) <100 mg/dL [facility] Comment:Desirable LDL: less than 100 mg/dLNear Optimal/Above Optimal LDL: 110- 129 mg/dLBorderline High LDL: 130-159 mg/dLHigh LDL: 160-189 mg/dLVery High LDL: greater than or equal to 190 mg/dL HDL Cholesterol 45 >40 mg/dL [facility] Comment:Desirable HDL: great er than 40 mg/dL Note: This HDL assay may give artificially low results in patients with liver disease. Blood Venous blood specimen / Unknown 08/11/2024 9:10 AM EST 08/11/2024 11:25 AM EST us Roni Chicas MD LAB BLOOD ORDERABLES Final Resul t [facility] [address] [place] [address] [phone] * BI Mammogram Screening Tomosynthesis Bilateral (10/22/2023 12:54 PM EST) Anatomical Region Laterality Modality Breast Bilateral Mammography 10/22/2023 12:5 4 PM EST Narrative 11/08/2023 6:58 AM EST [address] [place] [address] Mammography Report Signed Patient: Nona Clancy MR#: [id number] : 1970 Acct:[id number] Age/Sex: 52 / F ADM Date: 10/22/23 Loc: [facility] Attending Dr: Conchita Lind CNM Ordering Physician: CONCHITA LIND CNM Results: 1 Negative Date of Service: 10/22/23 Follow Up: 1 Year From Orig inal Mammogram Procedure(s): MM tomosynthesis screening BI Accession Number(s): [id number] cc: Roni Chicas MD; CONCHITA LIND CNM EXAMINATION: MM SCREENING DIGITAL BREAST [...] in OV> 11/08/23 0654 DD/ 1254 TD/TT: Exploration Geologist: Procedure Note Donotuseinterpreter, Image - 11/08/2023 [facility] [address] [place], [place] [address] Mammography Report Signed Patient: Nona Clancy [facility]#: [id number] : 1970Acct:[id number] Age/Sex: 52 / FADM Date: 10/22/23 Loc: [facility] Attending Dr: Conchita Lind CNM Ordering Physician: CONCHITA LINDesults: 1 Negative Date of Service: 10/22/23Follow Up: 1 Year From Orig inal Mammogram Procedure(s): MM tomosynthesis screening BI Accession Number(s): [id number] cc: NameRoni MD; CONCHITA LIND CNM EXAMINATION: MM SCREENING DIGITAL BREAST [...] in OV> 11/08/23 0654 DD/ 1254 TD/TT: Exploration Geologist: Conchita Lind CNM IMG BI PROCEDURES Final R esult * Image-Guided Pap with Age-Based Screening??with CT/NG,??Trichomonas (09/15/2023 11:11 AM EST) Trichomonas (NAAT) NOT DETECTED [facility] Comment:TRICHOMONAS VAGINALI S, QL TMA, PAP VIAL: NOT DETECTEDThe analytical performance characteristics of thisassay have been determined by [employer]. Themodifications have not been cleared or approved bythe FDA. This assay has been validated pursuant to theIA regulations and is used for clinical purposes.For additional information, please refer tohttp://education.WindSim/faq/Trichomonastma(This link is being provided for information/educational purposes only.)THIS TEST PERFORMED AT:[facility] [place] [phone] DIRECTOR: HUMAIRA HODGE MD CTNG Ref Lab NOT DETECTED NOT DETECTED [facility] NG Ref Lab NOT DETECTED NOT DETECTED [facility] Pap Vial 09/15/2023 11:1 1 AM EST 09/16/2023 11:59 AM EST Conchita Lind CNM LAB CYTOLOGY ORDERABLES E dited Result - Final [facility] [address] [place] [phone] * HPV mRNA E6/E7 w/Reflex to HPV Genotypes 16, 18/45 (09/15/2023 11:11 AM EST) HPV nRNA E6/E7 Not Detected Not Detected [facility] Comment:Methodology: Transcr iption-Mediated AmplificationThis assay detects E6/E7 viral messenger RNA (mRNA) from 14high-risk HPV types (16,18,31,33,35,39,45,51,52,56,58,59,66,68).Cervical sources are required for HPV testing.If a vaginal source from a patient who has had atotal hysterectomy with removal of cervix wassubmitted, please contact the testing laboratoryfor alternative testing options.For additional information, please refer tohttp://education.WindSim/faq/CZO751r4(This link if provided for information/educational purposes only.)THIS TEST WAS PERFORMED AT:[facility] [place] [phone] HODGE MD HPV mRNA E6/E7 [facility] HPV 16 RNA [facility] HPV 18/45 RNA [facility] 09/15/2023 11:1 1 AM EST 09/16/2023 8:30 AM EST Conchita ZARCO LAB CYTOLOGY ORDERABLES F inal Result [facility] [address] [place] [phone] [phone] from Last 3 Months or Most Recently Relevant to Health Maintenance Insurance [employer] [facility] [employer] Care Teams Engraver Relationship Specialty Start Date End Date Name, MD Roni [address] [place] [phone] PCP - General Family Medicine 04/11/17
--- NOTE | 2025-04-29 13:13 | A.OFFVIS_ITS ---
Vital Signs 04/29/25 13:21 Height 5 ft 4 in Weight 240 lb BMI 41.2 Intake Visit Reasons: New Prob-Bilateral Hand Pain, Numbness & Tingling Intake Note: Nona is a 54 year old right hand dominant female who presents today for a New Problem visit with complaints of Bilateral Hand Pain, Numbness & Tingling. EMG done at [facility] 01/18/25 Patient reports problem has been going on for about 6 months. Her numbness and tingling presents throughout the hand, but is mainly in the thumb and small finger of both hands. Shs has tried braces, with mild relief. Denies any other treatments or medications. 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 Hand Miter Operator Required: Yes Hand Miter Operator Language: Classroom Monitor Name: Maribeth [phone] Allergies No Known Allergies (No Known Allergies*) Allergy (Verified 04/29/25 13:17) HPI HPI New Prob-Bilateral Hand Pain, Numbness & Tingling: Details: Nona is a 54 year old right hand dominant female who presents today for a New Problem visit with complaints of Bilateral Hand Pain, Numbness & Tingling. EMG done at [facility] 01/18/25 Patient reports problem has been going on for about 6 months. Her numbness and tingling presents throughout the hand, but is mainly in the thumb and small finger of both hands. Shs has tried braces, with mild relief. Denies any other treatments or medications. 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 Good APB muscle firing and good finger cross. Vascular: Capillary refill brisk. ROM: Patient can make a fist and extend all their digits. Skin: No lacerations or abrasions noted. General: No ecchymosis. No erythema or evidence of infection. Assessment & Plan Assessment & Plan (1) Bilateral carpal tunnel syndrome: Code(s): G56.03 - Carpal tunnel syndrome, bilateral upper limbs Category: Medical Plan 1. Carpal tunnel syndrome, right Symptoms intermittent, daily, worse at night I educated the patient about the condition. I discussed both operative and nonoperative treatment options. The patient would like to proceed with surgery. The risks and benefits of operative treatment were discussed with the patient and the patient wishes to proceed with surgery. These risks include, but are not limited to, risk of damage to blood vessels, nerves, tendons, infection, recurrence, incomplete relief of preoperative symptoms, persistent pain, possible need for further surgery, and the risks associated with regional blocks and/or anesthesia. Plan is to take the patient to the operating room at some point in the next few weeks for the following procedures: 1. Right carpal tunnel release under local All of the preoperative paperwork including the consent was discussed today. All of the patient's questions were answered in the clinic today. The patient understands that they will be in contact with our personnel scheduler to discuss scheduling their procedure. Patient denies diabetes, blood thinners, asthma, heart issues, lung issues, kidney issues, or current smoking. 2. Carpal tunnel syndrome, left Symptoms intermittent, daily, worse at night Patient would like to proceed with operative intervention of the right prior to any surgical intervention of the left Patient is educated that when she has started the recovery process for her right carpal tunnel, we can explore operative intervention for the left Patient is amenable to this plan Coding Level of Care Code Est Pt Level 4 (85196) Diagnoses Bilateral carpal tunnel syndrome G56.03
[2025-04-29 13:21] VITALS: BMI 41.2
== END 2025-04-29 13:44 | disposition home or self-care (01) ==
LOC: HO.HOS 12:42
PROVIDERS: PCP Internal Medicine Geriatric Medicine
DX: G56.03 Carpal tunnel syndrome, bilateral upper limbs (principal)
CPT/HCPCS: 99214

== ENCOUNTER → 2025-04-29 12:42 | Outpatient (BNVA) | payer OTHER, SELFPAY | PROVIDERS: PCP Internal Medicine Geriatric Medicine | DX: G56.03 Carpal tunnel syndrome, bilateral upper limbs (principal) | CPT/HCPCS: 99212 ==

== ENCOUNTER 2025-07-30 17:44 | Emergency (ER) | payer OTHER, SELFPAY ==
[2025-07-30 17:52] VITALS: BP 158/87; PULSE 81; RESP 18; TEMP 36.6; O2SAT 98; BMI 44.4
--- NOTE | 2025-07-30 19:13 | ED.BACK ---
HPI - Back Pain/Injury General Chief Complaint: Back Pain/Injury Stated Complaint: fell pain in lower back Time Seen by Provider: 07/30/25 19:17 Source: patient, RN notes reviewed and old records reviewed Mode of arrival: ambulatory History of Present Illness ED Provider: Nelly Collado PA-C HPI Narrative: 54-year-old Greenlandic-speaking female with a past medical history biliary colic, osteoarthritis, presenting to the ED complaining of atraumatic right-sided low back pain x1 week. Denies radiation of pain, known injury, trauma, fall, numbness, tingling, weakness, abdominal pain, vomiting, incontinence/retention, fever. Took Tylenol last week for pain. Denies taking any pain medication today. Related Data Home Medications ?Medication ?Instructions ?Recorded ?Confirmed metoprolol succinate 25 mg 12.5 mg PO DAILY 03/28/21 12/30/22 tablet,extended release 24 hr montelukast 10 mg tablet 10 mg PO QPM 12/23/22 12/30/22 pramipexole 0.25 mg tablet 0.25 mg PO DAILY 06/03/24 06/03/24 Previous Rx's ?Medication ?Instructions ?Recorded celecoxib 200 mg capsule (Celebrex) 200 mg PO BID 30 days #60 caps 06/03/24 acetaminophen 500 mg tablet 500 mg PO Q6H PRN fever or pain 07/30/25 (Tylenol Extra Strength) #14 tabs cyclobenzaprine 5 mg tablet 5 mg PO Q8H PRN pain (scale score 07/30/25 7-10) 5 days #14 tabs lidocaine 5 % topical patch 1 patch topical DAILY PRN pain #30 07/30/25 (Lidoderm) ea naproxen 500 mg tablet 500 mg PO BID PRN pain 10 days #20 07/30/25 tabs Allergies Allergy/AdvReac Type Severity Reaction Status Date / Time No Known Allergies (No Known Allergy Verified 07/30/25 17:54 Allergies*) Review of Systems Review of Systems: Yes all other systems are reviewed and are negative Constitutional: Constitutional: Reports as per HPI Neurologic: Denies Sensory deficit (Neuro) [facility] Past Medical History Attestation statement: The following information was validated with the patient. 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 Physical Exam Vital Signs: Vital Signs: Last Vital Signs Temp 97.9 F 07/30/25 17:52 Pulse 81 07/30/25 17:52 Resp 18 07/30/25 17:52 BP 158/87 H 07/30/25 17:52 Pulse Ox 98 07/30/25 17:52 O2 Del Method Room Air 07/30/25 17:52 BMI result Body Mass Index 44.4 Const: General: cooperative, healthy appearing and no acute distress Orientation/consciousness: patient oriented x3 Limitations: no limitations HEENT: Head: Yes normal to inspection and Yes atraumatic Ears: hearing grossly normal bilaterally General nose exam: Normal external nose present Face and sinus: Yes normal facial exam Eyes: General: appearance normal, both eyes and all related structures EOM: EOMs intact bilaterally Neck: Neck: Yes normal visual inspection and Yes no meningeal signs Resp: Effort & Inspection: normal respiratory effort and no respiratory distress Cardio: Rate: regular rate GI: Inspection: Yes normal to inspection Palpation (GI): Soft to palpation, nontender, no guarding and not rigid : General: Yes no CVA tenderness Back/Spine/Pelvis: Other: No midline cervical/thoracic/lumbar spinous tenderness/step-off or deformity. Pain not reproducible on exam. No rash/erythema. Back: no CVA tenderness Skin: Rashes: no rashes Wounds: no wounds Neuro: Other: Strength intact throughout. No saddle anesthesia. Sensation intact to light touch. Neurovascular intact distally General: patient oriented x3, gait normal, tone normal, moves all extremities and no meningeal signs Cranial nerves: Yes CN's II-XII intact bilaterally Gait exam (Neuro): Normal gait present Motor exam (neuro): 5/5 motor strength present throughout and Normal motor muscle tone present throughout Sensory Exam: No Sensory deficit (Neuro) Extrem: General: Yes normal to inspection Medical Decision Making Medical Decision Making MDM Narrative: 54-year-old Greenlandic-speaking female with a past medical history biliary colic, osteoarthritis, presenting to the ED complaining of atraumatic right-sided low back pain x1 week. On exam vital signs stable, NAD, nontoxic appearing, physical exam as noted above. No midline spinous tenderness. Pain not reproducible. No red flag symptoms. Ambulating with steady gait. Concern for MSK pain/strain. No evidence of zoster. Unlikely fracture, renal stone, pyelo, cauda equina, cord compression, or epidural abscess Plan: Pain control, PCP follow up Please refer to course for remaining clinical decision making, interpretation of labs/imaging results, and discussions with consultants and/or family members. Results discussed with patient including worrisome signs and symptoms and strict return precautions, and when to return to the emergency department. They verbalized understanding and feel safe for discharge at this time. Differential Diagnosis Differential Diagnoses: The differential diagnosis associated with the presentation includes As above External Record Review External record reviewed: Inpatient record, Office record, Outpatient record, Prior outpatient labs, Prior outpatient radiology, Primary care record and Outside ED record Tests considered The following testing was considered but not selected: As above Prescription Management I considered prescription management with: Pain Medication Chronic Conditions Patient?s care impacted by: Other Social Determinants Patient?s care significantly limited by Social Determinants of Health including: Other Social Determinant of Health Discharge Plan Discharge Clinical Impression: Strain of lumbar region Patient Disposition: Home, Self-Care Instructions: Muscle Strain (DC) Additional Instructions: Your pain is likely musculoskeletal Flexeril is a muscle relaxer, take at night as it makes you drowsy, do not drive, drink alcohol, or operate machinery while taking it Naproxen as an anti-inflammatory / pain medication, take with food Lidoderm patches are numbing patches, apply to painful area In addition take Tylenol at home If symptoms persist or worsen, pain becomes unbearable, you developed urinary retention or incontinence, or weakness return to the ED Prescriptions: New acetaminophen [Tylenol Extra Strength] 500 mg tablet 500 mg PO Q6H PRN (Reason: fever or pain) Qty: 14 0RF lidocaine [Lidoderm] 5 % adhesive patch,medicated 1 patch topical DAILY MDD remove after 12 hours PRN (Reason: pain) Qty: 30 0RF Rx Instructions: leave on most painful area for up to 12 hrs naproxen 500 mg tablet 500 mg PO BID PRN (Reason: pain) 10 Days Qty: 20 0RF cyclobenzaprine 5 mg tablet 5 mg PO Q8H PRN (Reason: pain (scale score 7-10)) 5 Days Qty: 14 0RF No Action metoprolol succinate 25 mg tablet extended release 24 hr 12.5 mg PO DAILY montelukast 10 mg tablet 10 mg PO QPM pramipexole 0.25 mg tablet 0.25 mg PO DAILY celecoxib [Celebrex] 200 mg capsule 200 mg PO BID 30 Days Qty: 60 3RF Referrals: Name,MD Roni [Primary Care Provider, Internal Medicine] - 1 week Print Language: Greenlandic
--- OUTSIDE RECORDS SUMMARY | 2025-07-30 19:15 | XMS_ITS | Clinical Summary ---
Author Organization [employer] Address [address] [place] [address] 7 [place] [address] Care Team Providers Care Caterer Helper Name Role Phone Name, Roni FERRARA Primary Care Provider [phone] Allergies Active Allergy Reactions Criticality Noted Date Comments Sabina Brumfield 05/18/2025 Medications Flovent HFA 220 MCG/ACT inhalerIndicatio ns:Migraine [...] per day. 1 kit 12/21/19 25 Active celecoxib (CeleBREX) 200 MG capsule TAKE 1 CAPSULE BY MOUTH EVERY DAY 30 capsule 1 02/08/20 25 Active metoprolol tartrate (Lopressor) 100 MG tabletIndication s:Migraine without status migrainosus, not intractable, unspecified migraine type TAKE 1 TABLET BY MOUTH TWICE DAILY WITH MEALS 180 tablet 1 04/06/20 25 Active empagliflozin-me tFORMIN (Synjardy) 5-500 MGIndications:Ty pe 2 diabetes mellitus treated without insulin ([facility]) Take 1 tablet by mouth with breakfast and with evening meal. 60 tablet 11 05/18/20 25 026 Active atorvastatin (Lipitor) 20 MG tabletIndication s:Type 2 diabetes mellitus treated without insulin ([facility]) Take 1 tablet (20 mg) by mouth Once per day. 30 tablet 11 05/18/20 25 026 Active diphenhydrAMINE (BENADryl) 25 MG capsule Take 1 capsule (25 mg) by mouth every 8 (eight) hours if needed for itching for up to 10 days. 30 capsule 05/18/20 25 Active pramipexole (Mirapex) 0.25 MG tabletIndication s:Restless legs TAKE 1 TABLET BY MOUTH EVERY DAY 30 tablet 2 07/18/20 25 Active SUMAtriptan (Imitrex) 50 MG tabletIndication s:Migraine without status migrainosus, not intractable, unspecified migraine type TAKE 1 TABLET BY MOUTH AT ONSET OF MIGRAINE. MAY REPEAT ONCE AFTER 2 HOURS IF NEEDED DO NOT EXCEED 4 TABLETS IN 24 HOURS 10 tablet 2 07/18/20 25 Active SUMAtriptan (Imitrex) 50 MG tabletIndication s:Migraine without status migrainosus, not intractable, unspecified migraine type TAKE 1 TABLET BY MOUTH AT ONSET OF MIGRAINE. MAY REPEAT ONCE AFTER 2 HOURS IF NEEDED. NO MORE THAN 4 TABLETS PER 24 HOURS 10 tablet 2 02/08/20 25 025 Discontinued pramipexole (Mirapex) 0.25 MG tabletIndication s:Restless legs TAKE 1 TABLET BY MOUTH EVERY DAY 30 tablet 2 03/07/20 25 025 Discontinued Active Problems Problem Noted Date [...] plantar aspect of heel 10/09/2022 Morbid obesity (CMS/HCC) 09/02/2018 Knee pain 06/03/2018 Herpes labialis 10/08/2017 [...] Encounters Date Type Department Care Team Description 07/17/2025 Refill [facility] MED & PEDS [address] [place] [address] Name, MD Roni Restless legs; Migraine without status migrainosus, not intractable, unspecified migraine type 06/27/2025 Telephone [facility] MEDICINE [address] [place] [address] Dolores Rueda Mac 05/18/2025 3:30 PM EDT Office Visit [facility] MEDICINE [address] [place] [phone] Name, MD Roni Type 2 diabetes mellitus treated without insulin ([facility]) (Primary Dx); Food allergy 05/18/2025 Travel from Last 3 Months Immunizations Immunization Administration [...] Sign Reading Time Taken Comments Blood Pressure 127/78 05/18/2025 3:54 PM EDT Pulse 94 05/18/2025 3:36 PM EDT Temperature 36.3 C (97.3 F) 05/18/2025 3:36 PM EDT Respiratory Rate 14 05/18/2025 3:36 PM EDT Oxygen Saturation 97% 05/18/2025 3:36 PM EDT Inhaled Oxygen Concentration - - Weight 118 kg (260 lb 9.6 oz) 05/18/2025 3:36 PM EDT Height 162.6 cm (5' 4 ) 05/18/2025 3:36 PM EDT Body Mass Index 44.73 05/18/2025 3:36 PM EDT Plan of Treatment Upcoming Encounters Date Type Department Care Team (Late st Contact Info) Description 08/09/2025 1:00 PM EST Office Visit [facility] MEDICINE [address] [place] [address] Name, MD Roni [address] [place] [address] 08/19/2025 3:00 PM EST Nutrition [facility] DIABETES/NUTRITION [address] [place] [address] Orquidea Alicea, DEAN [address] [place] [address] Health Maintenance Due Date Last Done Comments CT Colonography 1970 Colonoscopy 1970 Colorectal Cancer Screening 1970 FIT DNA/Cologuard 1970 FIT 1970 FOBT 1970 HIV Screening 1970 Sigmoidoscopy 1970 Hepatitis C Screening 1988 Hepatitis B Vaccines (1 of 3 - 19+ 3-dose series) 1989 Pneumococcal Vaccine: 50+ Years (1 of 2 - PCV) 1989 Zoster Vaccines (1 of 2) 2020 COVID-19 Vaccine (3 - 2024- season) 2025 02/09/2021, 01/12/2021 Influenza Vaccine (#1) 2025 Depression Monitoring 06/22/2025 12/20/2024, 025 Diabetes: Urine Protein Screening 08/11/2025 08/11/2024, 01/21/2024 Lipid Panel 08/11/2025 08/11/2024, 01/04, 03/01/2021 Diabetes: Hemoglobin A1C 08/18/2025 025, 12/20/2024, 06/18/2024, Additional history exists Mammogram 10/22/2025 10/22/2023, 11/06, 09/06/2021, Additional history exists SDOH Screening 12/20/2025 12/20/2024 Alcohol/Substance Use Screening 02/07/2026 02/07/2025 Disability Screening 02/07/2026 02/07/2025 Diabetes: Foot Exam 05/18/2026 05/18/2025, 05/18/2025, 05/18/2025, Additional history exists Tobacco Screening 05/18/2026 05/18/2025 Eye Exam 12/06/2026 12/06/2024, 03/0 12/2024, 12/06/2024, [...] Diagnosis Comments POCT GLYCATED HEMOGLOBIN, TOTAL Routine 05/18/2025 3:38 PM EDT Type 2 diabetes mellitus treated without insulin (CMS/HCC) POCT GLUCOSE Routine 05/18/2025 3:37 PM EDT Type 2 diabetes mellitus treated without insulin (CMS/HCC) ALBUMIN, RANDOM URINE W/CREATININE Routine [...] Maintenance Results * (ABNORMAL) POCT HGB A1C (05/18/2025 3:38 PM EDT) Hemoglobin A1C 7.0(A) 4.0 - 5.7 % QC Media Lot # [id number] Lot# Expiration Date 72 Blood 05/18/2025 3:38 PM EDT us Roni Chicas MD POINT OF CARE TEST ENTER/EDIT OR DERABLES Final Result * (ABNORMAL) POCT Glucose (05/18/2025 3:37 PM EDT) Glucose Blood, POC 202(A) 60 - 200 mg/dL [employer] Media Lot # [id number] Lot# Expiration Date Blood Capillary blood specimen / Unknown 05/18/2025 3:37 PM EDT us Roni Chicas MD POINT OF CARE TEST ENTER/EDIT OR DERABLES Final Result * Albumin, Random Urine W/Creatinine (08/11/2024 9:10 AM EST) Creatinine, Urine 106.02 mg/dL [facility] Microalbumin Urine 16.0 mg/L [facility] Microalbum Creatinine Ratio Ur 15.0 <30 ug/mg cr [facility] Comment:Albumin/Creatinine R atio Reference Ranges: Normal: < 30 ug/mg creatinine Microalbuminuria: 30 - 300 ug/mg creatinineClinical Albuminuria: > 300 ug/mg creatinine 08/11/2024 9:10 AM EST 08/11/2024 11:12 AM EST us Roni Chicas MD LAB URINE ORDERABLES Final Resul t [facility] [address] [place] [phone] * (ABNORMAL) Lipid Panel, Standard (08/11/2024 9:10 AM EST) Triglycerides 125 <150 mg/dL [facility] Comment:Desirable Triglyceri de: less than 150 mg/dLBorderline High Triglyceride 150-199 mg/dLHigh Triglyceride: 200-499 mg/dLVery High Triglyceride: greater than or equal to 5OO mg/dL Cholesterol 191 <200 mg/dL [facility] Comment:Desirable Cholestero l: less than 200 mg/dLBorderline High Cholesterol: 200-239 mg/dLHigh Cholesterol: greater than 239 mg/dL LDL Cholesterol Calculated 121(H) <100 mg/dL [facility] Comment:Desirable LDL: less than 100 mg/dLNear Optimal/Above Optimal LDL: 110- 129 mg/dLBorderline High LDL: 130-159 mg/dLHigh LDL: 160-189 mg/dLVery High LDL: greater than or equal to 190 mg/dL HDL Cholesterol 45 >40 mg/dL [facility] Comment:Desirable HDL: great er than 40 mg/dL Note: This HDL assay may give artificially low results in patients with liver disease. Blood Venous blood specimen / Unknown 08/11/2024 9:10 AM EST 08/11/2024 11:25 AM EST Roni Chicas MD LAB BLOOD ORDERABLES Final Resul t [facility] [address] [place] [address] [phone] * BI Mammogram Screening Tomosynthesis Bilateral (10/22/2023 12:54 PM EST) Anatomical Region Laterality Modality Breast Bilateral Mammography 10/22/2023 12:5 4 PM EST Narrative 11/08/2023 6:58 AM EST [facility] [address] [place] [address] Mammography Report Signed Patient: Nona Clancy MR#: [id number] : 1970 Acct:[id number] Age/Sex: 52 / F ADM Date: 10/22/23 Loc: HO.MAMMO Attending Dr: Conchita Lind CNM Ordering Physician: CONCHITA LIND CNM Results: 1 Negative Date of Service: 10/22/23 Follow Up: 1 Year From Orig inal Mammogram Procedure(s): MM tomosynthesis screening BI Accession Number(s): [id number] cc: Name,Roni FERRARA; CONCHITA LIND CNM EXAMINATION: MM SCREENING DIGITAL [...] in OV> 11/08/23 0654 DD/ 1254 TD/TT: Pet Store Merchandiser: Procedure Note Donotuseinterpreter, Image - 11/08/2023 [facility] [address] [place] [address] Mammography Report Signed Patient: Nona Clancy [facility]#: [id number] : 1970Acct:[id number] Age/Sex: 52 / FADM Date: 10/22/23 Loc: HO.MAMMO Attending Dr: Conchita Lnid CNM Ordering Physician: CONCHITA LINDesults: 1 Negative Date of Service: 10/22/23Follow Up: 1 Year From Orig inal Mammogram Procedure(s): MM tomosynthesis screening BI Accession Number(s): [id number] cc: Name,Roni FERRARA; CONCHITA LIND CNM EXAMINATION: MM SCREENING DIGITAL [...] in OV> 11/08/23 0654 DD/ 1254 TD/TT: Pet Store Merchandiser: Conchita Lind CNM IMG BI PROCEDURES Final R esult * Image-Guided Pap with Age-Based Screening??with CT/NG,??Trichomonas (09/15/2023 11:11 AM EST) Trichomonas (NAAT) NOT DETECTED [facility] Comment:TRICHOMONAS VAGINALI S, QL TMA, PAP VIAL: NOT DETECTEDThe analytical performance characteristics of thisassay have been determined by [employer]. Themodifications have not been cleared or approved bythe FDA. This assay has been validated pursuant to theCLIA regulations and is used for clinical purposes.For additional information, please refer tohttp://education.PersonSpot/faq/Trichomonastma(This link is being provided for information/educational purposes only.)THIS TEST PERFORMED AT:[employer] [address] [phone] DIRECTOR: HUMAIRA HODGE MD CTNG Ref Lab NOT DETECTED NOT DETECTED [facility] NG Ref Lab NOT DETECTED NOT DETECTED [facility] Pap Vial 09/15/2023 11:1 1 AM EST 09/16/2023 11:59 AM EST Conchita Lind CNM LAB CYTOLOGY ORDERABLES E dited Result - Final [facility] [address] [place] [phone] * HPV mRNA E6/E7 w/Reflex to HPV Genotypes 16, 18/45 (09/15/2023 11:11 AM EST) HPV nRNA E6/E7 Not Detected Not Detected [facility] Comment:Methodology: Transcr iption-Mediated AmplificationThis assay detects E6/E7 viral messenger RNA (mRNA) from 14high-risk HPV types (16,18,31,33,35,39,45,51,52,56,58,59,66,68).Cervical sources are required for HPV testing.If a vaginal source from a patient who has had atotal hysterectomy with removal of cervix wassubmitted, please contact the testing laboratoryfor alternative testing options.For additional information, please refer tohttp://education.PersonSpot/faq/GTX640o6(This link if provided for information/educational purposes only.)THIS TEST WAS PERFORMED AT:[employer] [place] [phone] HODGE MD HPV mRNA E6/E7 [facility] HPV 16 RNA [facility] HPV 18/45 RNA [facility] 09/15/2023 11:1 1 AM EST 09/16/2023 8:30 AM EST Conchita Lind [facility] CYTOLOGY ORDERABLES F inal Result [facility] [address] [place] [phone] from Last 3 Months or Most Recently Relevant to Health Maintenance Insurance [facility] 3 Care Teams Caterer Helper Relationship Specialty Start Date End Date Name, MD Roni [address] [place] [phone] PCP - General Family Medicine 04/11/17
--- OUTSIDE RECORDS SUMMARY | 2025-07-30 19:15 | XMS_ITS | Encounter Summary ---
Author Organization [employer] Address [address] [place] [address] [address] [place] [address] Care Team Providers Care Fashion Intern Name Role Phone Name, Roni FERRARA Primary Care Provider [phone] Reason for Visit * Reason Onset Date Comments Med Refill 08/25/2023 Encounter Details Date Type Department Care Team ([facility] st Contact Info) Description 08/25/2023 Telephone [facility] MEDICINE [address] [place], [place] [phone] Name, MD Roni [address] [place] [address] Med Refill Social History Tobacco Use Types [...] 10:35 AM EST Medication was sent to [facility] on 06/20/23 #30 with 2 refills. * Telephone Encounter - Nathaniel Rodriguez - 08/25/2023 10:26 AM EST Tc from patient requesting a medication refill for pramipexole (Mirapex) 0.25 MG tablet. documented in this encounter Plan of Treatment Upcoming Encounters Date Type Department Care Team (Late st Contact Info) Description 08/09/2025 1:00 PM EST Office Visit [facility] MEDICINE [address] [place] [phone] NameRoni MD [address] [place] [address] 08/19/2025 3:00 PM EST Nutrition [facility] DIABETES/NUTRITION [address] [place] [address] [place] [address] documented as of this encounter Visit Diagnoses Not on filedocumented in this encounter Additional Health Concerns Assessment Noted Time PHQ-9 Depression Total Score: 0 03/06/20 10:34 AM EDT documented as of this encounter Care Teams Fashion Intern Relationship Specialty Start Date End Date Roni Chicas MD [address] [place] [address] PCP - General Family Medicine 04/11/17 documented as of this encounter
--- OUTSIDE RECORDS SUMMARY | 2025-07-30 19:15 | XMS_ITS | Encounter Summary ---
Author Organization [employer] Address [address] [place] [address] [address] [place] [address] Care Team Providers Care Functional Manager Name Role Phone Name, Roni FERRARA Primary Care Provider [phone] Reason for Visit * Reason Onset Date Comments Results 04/20/2024 Encounter Details Date Type Department Care Team ([facility] st Contact Info) Description 04/20/2024 Telephone [facility] MEDICINE [address] [place], [place] [phone] Name, MD Roni [address] [place] [address] Results Social History Tobacco Use Types Packs/Day [...] - 04/20/2024 1:57 PM EDT T/C to [phone] through [facility] id - [id number] to inform that Ultrasound result is not available ( Not read by [facility] yet ). No answer. LVM to call back on [phone]. * Telephone Encounter - Prudencio Glasgow - 04/20/2024 12:31 PM EDT TC from pt requesting call back regarding Results. Type of results: Ultrasound Date when done: 04/09 Facility: [facility] documented in this encounter Plan of Treatment Upcoming Encounters Date Type Department Care Team (Late st Contact Info) Description 08/09/2025 1:00 PM EST Office Visit [facility] MEDICINE [address] [place] [phone] Name, MD Roni [address] [place] [address] 08/19/2025 3:00 PM EST Nutrition [facility] DIABETES/NUTRITION [address] [place] [phone] [place] [address] documented as of this encounter Visit Diagnoses Not on filedocumented in this encounter Additional Health Concerns Assessment Noted Time PHQ-9 Depression Total Score: 0 03/06/20 23 10:34 AM EDT documented as of this encounter Care Teams Functional Manager Relationship Specialty Start Date End Date Name, MD Roni [address] [place] [address] PCP - General Family Medicine 04/11/17 documented as of this encounter
--- OUTSIDE RECORDS SUMMARY | 2025-07-30 19:15 | XMS_ITS | Encounter Summary ---
Author Organization [employer] Address [address] [place] [address] 7 [place] [address] Care Team Providers Care Commissioner Of Relocation Services Name Role Phone Name, Roni FERRARA Primary Care Provider [phone] Reason for Visit * Reason Comments Med Refill Encounter Details Date Type Department Care Team (Late st Contact Info) Description 12/29/2023 Refill [facility] MEDICINE [address] [place], [place] [phone] Name, MD Roni [address] [place] [address] Migraine without status migrainosus, not intractable, unspecified [...] Description 08/09/2025 1:00 PM EST Office Visit [facility] [address] [place] [phone] NameRoni MD [address] [place] [address] 08/19/2025 3:00 PM EST Nutrition [facility] DIABETES/NUTRITION [address] [place] [address] Orquidea Alicea, RD [address] [place] [address] documented as of this encounter Visit Diagnoses Diagnosis Migraine without status migrainosus, not intractable, unspecified migraine type documented in this encounter Additional Health Concerns Assessment Noted Time PHQ-9 Depression Total Score: 0 03/06/20 23 10:34 AM EDT documented as of this encounter Care Teams Commissioner Of Relocation Services Relationship Specialty Start Date End Date NameRoni MD [address] [place] [phone] PCP - General Family Medicine 04/11/17 documented as of this encounter
--- OUTSIDE RECORDS SUMMARY | 2025-07-30 19:15 | XMS_ITS | Encounter Summary ---
Author Organization [employer] Address [address] [place] [address] 7 [place] [address] Care Team Providers Care Accounts Specialist Name Role Phone NameRoni MD Primary Care Provider [phone] Encounter Details Date Type Department Care Team (Late st Contact Info) Description 10/08/2022 Orders Only [facility] CH[facility] MED & PEDS [address] [place] [address] Blanquita Tolliver LPN Social History Tobacco Use [...] PM EST Office Visit [facility] MEDICINE [address] [place] [address] NameRoni MD [address] [place] [address] 08/19/2025 3:00 PM EST Nutrition [facility] DIABETES/NUTRITION [address] [place] [address] [place] [address] documented as of this encounter Visit Diagnoses Not on filedocumented in this encounter Care Teams Accounts Specialist Relationship Specialty Start Date End Date NameRoni MD [address] [place] [address] PCP - General Family Medicine 04/11/17 documented as of this encounter
--- OUTSIDE RECORDS SUMMARY | 2025-07-30 19:15 | XMS_ITS | Encounter Summary ---
Author Organization [employer] Address [address] [place] [address] Care Team Providers Care Coil Former Name Role Phone Name, Roni FERRARA Primary Care Provider [phone] Reason for Visit * Reason Onset Date Comments call back 12/10/2022 Encounter Details Date Type Department Care Team (Late st Contact Info) Description 12/10/2022 Telephone [facility] MEDICINE [address] [place] [address] [phone] Name, MD Roni [address] [place] [phone] call back Social History Tobacco Use Types [...] Department Care Team (Late Contact Info) Description 08/09/2025 1:00 PM EST Office Visit [facility] MEDICINE [address] [place] [address] [phone] Name, [place] [address] 08/19/2025 3:00 PM EST Nutrition [facility] DIABETES/NUTRITION [address] [place] [phone] [place] [address] documented as of this encounter Visit Diagnoses Not on filedocumented in this encounter Care Teams Coil Former Relationship Specialty Start Date End Date Name, MD Roni [address] [place] [phone] PCP - General Family Medicine 04/11/17 documented as of this encounter
--- OUTSIDE RECORDS SUMMARY | 2025-07-30 19:15 | XMS_ITS | Encounter Summary ---
Author Organization [employer] Address [address] [place] [address] 7 [place] [address] Care Team Providers Care Entry Level Drafter Name Role Phone Name, Roni FERRARA Primary Care Provider [phone] Reason for Visit * Reason Onset Date Comments Nurse Triage 03/31/2024 Encounter Details Date Type Department Care Team ([facility] st Contact Info) Description 03/31/2024 Telephone [facility] MEDICINE [address] [place], [place] [phone] Name, MD Roni [address] [place] [address] Nurse Triage Social History Tobacco Use Types [...] t he electric, gas, oil or water [employer] threatened to shut off services in your [...] 03/31/2024 9:35 AM EDT Triage call with [place] [id number] Pt reports left foot pain. Left leg [...] pain now The caller accepted this outcome Nigerian speaker documented in this encounter Plan of Treatment Upcoming Encounters Date Type Department Care Team (Late st Contact Info) Description 08/09/2025 1:00 PM EST Office Visit [facility] MEDICINE [address] [place] [address] Roni Chicas MD [address] [place], [place] [phone] 08/19/2025 3:00 PM EST Nutrition [facility] DIABETES/NUTRITION [address] [place], [place] [phone] Orquidea [address]a [address] [place], [place] [phone] documented as of this encounter Visit Diagnoses Not on filedocumented in this encounter Additional Health Concerns Assessment Noted Time PHQ-9 Depression Total Score: 0 03/06/20 23 10:34 AM EDT documented as of this encounter Care Teams Entry Level Drafter Relationship Specialty Start Date End Date Roni Chicas MD [address] [place] [phone] PCP - General Family Medicine 04/11/17 documented as of this encounter
--- OUTSIDE RECORDS SUMMARY | 2025-07-30 19:15 | XMS_ITS | Encounter Summary ---
Author Organization [employer] Address [address] [place] [address] Care Team Providers Care Team Assembler Name Role Phone Name, Roni FERRARA Primary Care Provider [phone] Reason for Visit * Reason Onset Date Comments Call back 12/10/2022 Encounter Details Date Type Department Care Team ([facility] st Contact Info) Description 12/10/2022 Telephone [facility] MEDICINE [address] [place] [address] [phone] Name, MD Roni [address] [place] [address] Call back Social History Tobacco Use Types [...] let on 12/10/2022 Please contact pt at [phone] documented in this encounter Plan of Treatment Upcoming Encounters Date Type Department Care Team (Late st Contact Info) Description 08/09/2025 1:00 PM EST Office Visit [facility] MEDICINE [address] [place] [phone] Name, MD Roni [address] [place] [phone] 08/19/2025 3:00 PM EST Nutrition [facility] DIABETES/NUTRITION [address] [place] [phone] Orquidea Alicea, DEAN [address] [place] [address] documented as of this encounter Visit Diagnoses Not on filedocumented in this encounter Care Teams Team Assembler Relationship Specialty Start Date End Date Name, MD Roni [address] [place] [phone] PCP - General Family Medicine 04/11/17 documented as of this encounter
[2025-07-30 19:38] VITALS: BP 159/79; PULSE 80; RESP 16; TEMP 36.7; O2SAT 97
[2025-07-30 19:39] VITALS: BP 159/79; PULSE 80; RESP 16; TEMP 36.7; O2SAT 97
== END 2025-07-30 19:40 | disposition home or self-care (01) ==
PROVIDERS: Emergency Provider Emergency Medicine Emergency Medical Services; PCP Internal Medicine Geriatric Medicine
DX: S39.012A Strain of muscle, fascia and tendon of lower back, initial encounter (principal); X58.XXXA Exposure to other specified factors, initial encounter; Y93.9 Activity, unspecified; Y92.9 Unspecified place or not applicable; Y99.9 Unspecified external cause status
CPT/HCPCS: 99283